=== PATIENT | male | born 1950 | race Caucasian/White ===

== ENCOUNTER 2017-03-15 15:43 | Inpatient (IN) | payer BC, MEDICARE ==
[2017-03-15] MEDS ORDERED: SODIUM CHLORIDE 0.9% 3,000 ML IV ONE (16:36)
[2017-03-15] MEDS ORDERED: SODIUM CHLORIDE 0.9% 1,000 ML IV STA (16:37)
[2017-03-15] MEDS ORDERED: CEFEPIME 2 GM in SODIUM CHLORIDE 0.9% 50 ML IVPB STA (16:38)
[2017-03-15] MEDS ORDERED: IV VANCOMYCIN PER PHARMACY 1 EACH MISC MISCELLANE PRN (16:39)
--- NOTE | 2017-03-15 16:47 | ED ---
General Adult HPI - General Chief complaint: Chest Pain Stated complaint: Right rib Pain Time Seen by Provider: 03/15/17 16:10 Source: patient Mode of arrival: wheelchair Limitations: no limitations - History of Present Illness Initial comments: The patient is a 66-year-old male who presents to the ED with a chief complaint of cough and shortness of breath. The patient states that the symptoms began 2 days ago. He states that they're associated sputum production and right-sided chest pain. The patient notes that he has also had a fever and chills. Patient states that this feels like the last time that he had an episode of pneumonia. This was back in mid December 2016. The patient denies any nausea or vomiting. He denies any abdominal pain. He states that he has had decreased urine output. The patient notes that he has a history of paroxysmal atrial fibrillation. He has cardiac risk factors of hypertension, hyperlipidemia, diabetes. Patient states that he has not used any medications while at home. Patient states that he had his flu shot this year but still got the flu earlier this year. His no history of PE or DVT. The patient was recently in [place] performing in [employer]. 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 - Related Data Home Medications Medication Instructions Recorded Confirmed Allopurinol [Zyloprim] 300 mg PO DAILY 03/15/17 03/15/17 Aspirin EC [Ecotrin Low Dose] 81 mg PO HS 03/15/17 03/15/17 Colesevelam [Welchol] 1,875 mg PO AC-BID 03/15/17 03/15/17 Esomeprazole Magnesium [NexIUM] 40 mg PO DAILY 03/15/17 03/15/17 Folplex 2.2mg 2.2 mg PO DAILY 03/15/17 03/15/17 Insulin Degludec [Tresiba 24 unit SQ HS 03/15/17 03/15/17 Flextouch U-200] Insulin Glulisine [Apidra Solostar] See Protocol SQ ACHS 03/15/17 03/15/17 Latanoprost [Xalatan 0.005%] 1 drop BOTH EYES TUTH@2100 03/15/17 03/15/17 Magnesium Gluconate [Magonate] 500 mg PO BID 03/15/17 03/15/17 Nateglinide [Starlix] 120 mg PO AC-TID 03/15/17 03/15/17 Pitavastatin Calcium [Livalo] 4 mg PO DAILY 03/15/17 03/15/17 Tamsulosin HCl [Flomax] 0.4 mg PO DAILY 03/15/17 03/15/17 Tolterodine Tartrate [Detrol LA] 4 mg PO DAILY 03/15/17 03/15/17 Torsemide [Demadex] 20 mg PO DAILY 03/15/17 03/15/17 sitaGLIPtin [Januvia] 100 mg PO DAILY 03/15/17 03/15/17 Allergies Allergy/AdvReac Type Severity Reaction Status Date / Time clopidogrel [From Plavix] Allergy Unknown Verified 03/15/17 17:37 niacin Allergy Hallucinati Verified 03/15/17 17:37 [From Niaspan ons Extended-Release] rivaroxaban [From Xarelto] Allergy Unknown Verified 03/15/17 17:37 Dayftxq-Fgo-Jru Reductase Allergy LEG CRAMPS Verified 03/15/17 17:37 Inhibitor Review of Systems ROS Statement: Those systems with pertinent positive or pertinent negative responses have been documented in the HPI. ROS Other: All systems not noted in ROS Statement are negative. Constitutional: Reports: fever, chills. Denies: weakness Respiratory: Denies: cough, dyspnea, wheezes, hemoptysis Cardiovascular: Reports: chest pain. Denies: as per HPI (right lower), dyspnea on exertion Endocrine: Reports: fatigue Gastrointestinal: Denies: abdominal pain, nausea, vomiting, diarrhea, constipation Genitourinary: Denies: urgency, dysuria, frequency, hematuria Musculoskeletal: Denies: back pain Neurological: Denies: headache, weakness, numbness Psychiatric: Denies: anxiety, depression Past Medical History Past Medical History: Atrial Fibrillation, Diabetes Mellitus History of Any Multi-Drug Resistant Organisms: None Reported Past Surgical History: Appendectomy, Orthopedic Surgery Additional Past Surgical History / Comment(s): eye surgery, heel spurs, Past Psychological History: No Psychological Hx Reported Smoking Status: Never smoker Past Alcohol Use History: Rare Past Drug Use History: None Reported General Exam Limitations: no limitations General appearance: alert, in no apparent distress Head exam: Present: atraumatic, normocephalic Eye exam: Present: normal appearance, PERRL. Absent: scleral icterus, conjunctival injection Pupils: Present: normal accommodation, other (wears glasses) ENT exam: Present: normal exam, mucous membranes dry Neck exam: Present: normal inspection, full ROM Respiratory exam: Present: other (crackles in the RLL) Cardiovascular Exam: Present: normal rhythm, tachycardia GI/Abdominal exam: Present: soft. Absent: distended, tenderness, guarding, rebound Extremities exam: Present: normal inspection, full ROM. Absent: tenderness Back exam: Present: normal inspection Neurological exam: Present: alert, oriented X3 Psychiatric exam: Present: normal affect, normal mood Skin exam: Present: warm, dry, intact Course Vital Signs 03/15/17 03/15/17 16:02 19:58 Temperature 101.7 F H 97.7 F Pulse Rate 98 82 Respiratory 18 18 Rate Blood Pressure 153/69 113/57 O2 Sat by Pulse 96 Oximetry EKG Findings - EKG Comments: EKG Findings:: EKG demonstrates sinus tachycardia. There is a right bundle branch block. His questionable T-wave inversion in Lead I and aVL. Medical Decision Making - Medical Decision Making Patient is a 66-year-old male who presents to the ED with a chief complaint of right lower chest wall pain. He states that it feels similar to when he had pneumonia in December. Patient notes fever. He notes that he has been more fatigued recently. Patient denies any nausea or vomiting. Patient is not tender on examination. Crackles appreciated at the right base. Concern for possible HCAP. Will cover patient with cefepime and vancomycin. Given that the patient has temp of 101.7 F as well as tachycardia, will bolus patient with 30 mL/kg IV fluids. Obtain lactic acid and blood cultures per sepsis protocol. Check chest x-ray. EKG. Keep patient on bus driver/monitor. Keep patient on continuous pulse ox monitoring. 6:55 PM Patient updated of overall findings. CXR demonstrates right-sided pleural effusion. Patient noted to have elevated LFTs. Lipase is normal. Concern for possible cholelithiasis with cholecystitis. Will obtain STAT Ultrasound Abdomen. 7:39 PM Patient updated of findings, including cholelithiasis with cholecystitis. D/C Vancomycin and provide patient with dose of Flagyl. Call placed to General Surgery seasonal driver. Patient's vital signs noted to be improved. HR is 87 with SpO2 of 97% on 2L NC. 7:[address] Connors, who states that she will likely take the patient to the OR in the morning. She recommends admitting the patient to Internal Medicine. Call placed to Internal Medicine Service. Spoke with Neal (covering for Dr. Maurice) who accepts admission of the patient. - Lab Data Result diagrams: 03/15/17 16:25 03/15/17 16:25 Lab Results 03/15/17 03/15/17 03/15/17 Range/Units 16:25 16:25 16:25 WBC (3.8-10.6) k/uL RBC (4.30-5.90) m/uL Hgb (13.0-17.5) gm/dL Hct (39.0-53.0) % MCV (80.0-100.0) fL MCH (25.0-35.0) pg MCHC (31.0-37.0) g/dL RDW (11.5-15.5) % Plt Count (150-450) k/uL Neutrophils % % Lymphocytes % % Monocytes % % Eosinophils % % Basophils % % Neutrophils # (1.3-7.7) k/uL Lymphocytes # (1.0-4.8) k/uL Monocytes # (0-1.0) k/uL Eosinophils # (0-0.7) k/uL Basophils # (0-0.2) k/uL Sodium 132 L (137-145) mmol/L Potassium 4.0 (3.5-5.1) mmol/L Chloride 98 (98-107) mmol/L Carbon Dioxide 26 (22-30) mmol/L Anion Gap 8 mmol/L BUN 14 (9-20) mg/dL Creatinine 0.99 (0.66-1.25) mg/dL Est GFR (MDRD) Af Amer >60 (>60 ml/min/1.73 sqM) Est GFR (MDRD) Non-Af >60 (>60 ml/min/1.73 sqM) Glucose 195 H (74-99) mg/dL Plasma Lactic Acid Abdiel (0.7-2.0) mmol/L Calcium 9.2 (8.4-10.2) mg/dL Magnesium 1.5 L (1.6-2.3) mg/dL Total Bilirubin 3.4 H (0.2-1.3) mg/dL AST 157 H (17-59) U/L ALT 262 H (21-72) U/L Alkaline Phosphatase 231 H (38-126) U/L Troponin I <0.012 (0.000-0.034) ng/mL Total Protein 6.7 (6.3-8.2) g/dL Albumin 3.6 (3.5-5.0) g/dL Lipase (23-300) U/L Urine Color Yellow Urine Appearance Clear (Clear) Urine pH 6.0 (5.0-8.0) Ur Specific [place] 1.009 (1.001-1.035) Urine Protein Negative (Negative) Urine Glucose (UA) Trace H (Negative) Urine Ketones Trace H (Negative) Urine Blood Negative (Negative) Urine Nitrite Negative (Negative) Urine Bilirubin Negative (Negative) Urine Urobilinogen <2.0 (<2.0) mg/dL Ur Leukocyte Esterase Negative (Negative) Influenza Type A RNA (Not Detectd) Influenza Type B (PCR) (Not Detectd) 03/15/17 03/15/17 03/15/17 Range/Units 16:25 16:25 17:00 WBC 9.7 (3.8-10.6) k/uL RBC 4.66 (4.30-5.90) m/uL Hgb 14.8 (13.0-17.5) gm/dL Hct 45.2 (39.0-53.0) % MCV 97.1 (80.0-100.0) fL MCH 31.8 (25.0-35.0) pg MCHC 32.8 (31.0-37.0) g/dL RDW 14.7 (11.5-15.5) % Plt Count 161 (150-450) k/uL Neutrophils % 88 % Lymphocytes % 6 % Monocytes % 4 % Eosinophils % 0 % Basophils % 0 % Neutrophils # 8.6 H (1.3-7.7) k/uL Lymphocytes # 0.6 L (1.0-4.8) k/uL Monocytes # 0.4 (0-1.0) k/uL Eosinophils # 0.0 (0-0.7) k/uL Basophils # 0.0 (0-0.2) k/uL Sodium (137-145) mmol/L Potassium (3.5-5.1) mmol/L Chloride (98-107) mmol/L Carbon Dioxide (22-30) mmol/L Anion Gap mmol/L BUN (9-20) mg/dL Creatinine (0.66-1.25) mg/dL Est GFR (MDRD) Af Amer (>60 ml/min/1.73 sqM) Est GFR (MDRD) Non-Af (>60 ml/min/1.73 sqM) Glucose (74-99) mg/dL Plasma Lactic Acid Abdiel 1.7 (0.7-2.0) mmol/L Calcium (8.4-10.2) mg/dL Magnesium (1.6-2.3) mg/dL Total Bilirubin (0.2-1.3) mg/dL AST (17-59) U/L ALT (21-72) U/L Alkaline Phosphatase (38-126) U/L Troponin I (0.000-0.034) ng/mL Total Protein (6.3-8.2) g/dL Albumin (3.5-5.0) g/dL Lipase 32 (23-300) U/L Urine Color Urine Appearance (Clear) Urine pH (5.0-8.0) Ur Specific [place] (1.001-1.035) Urine Protein (Negative) Urine Glucose (UA) (Negative) Urine Ketones (Negative) Urine Blood (Negative) Urine Nitrite (Negative) Urine Bilirubin (Negative) Urine Urobilinogen (<2.0) mg/dL Ur Leukocyte Esterase (Negative) Influenza Type A RNA (Not Detectd) Influenza Type B (PCR) (Not Detectd) 03/15/17 Range/Units 17:29 WBC (3.8-10.6) k/uL RBC (4.30-5.90) m/uL Hgb (13.0-17.5) gm/dL Hct (39.0-53.0) % MCV (80.0-100.0) fL MCH (25.0-35.0) pg MCHC (31.0-37.0) g/dL RDW (11.5-15.5) % Plt Count (150-450) k/uL Neutrophils % % Lymphocytes % % Monocytes % % Eosinophils % % Basophils % % Neutrophils # (1.3-7.7) k/uL Lymphocytes # (1.0-4.8) k/uL Monocytes # (0-1.0) k/uL Eosinophils # (0-0.7) k/uL Basophils # (0-0.2) k/uL Sodium (137-145) mmol/L Potassium (3.5-5.1) mmol/L Chloride (98-107) mmol/L Carbon Dioxide (22-30) mmol/L Anion Gap mmol/L BUN (9-20) mg/dL Creatinine (0.66-1.25) mg/dL Est GFR (MDRD) Af Amer (>60 ml/min/1.73 sqM) Est GFR (MDRD) Non-Af (>60 ml/min/1.73 sqM) Glucose (74-99) mg/dL Plasma Lactic Acid Abdiel (0.7-2.0) mmol/L Calcium (8.4-10.2) mg/dL Magnesium (1.6-2.3) mg/dL Total Bilirubin (0.2-1.3) mg/dL AST (17-59) U/L ALT (21-72) U/L Alkaline Phosphatase (38-126) U/L Troponin I (0.000-0.034) ng/mL Total Protein (6.3-8.2) g/dL Albumin (3.5-5.0) g/dL Lipase (23-300) U/L Urine Color Urine Appearance (Clear) Urine pH (5.0-8.0) Ur Specific [place] (1.001-1.035) Urine Protein (Negative) Urine Glucose (UA) (Negative) Urine Ketones (Negative) Urine Blood (Negative) Urine Nitrite (Negative) Urine Bilirubin (Negative) Urine Urobilinogen (<2.0) mg/dL Ur Leukocyte Esterase (Negative) Influenza Type A RNA Not Detected (Not Detectd) Influenza Type B (PCR) Not Detected (Not Detectd) Disposition Clinical Impression: Cholelithiasis and acute cholecystitis with obstruction, Sepsis Disposition: ADMITTED IP TO THIS HOSP Referrals: Gregorio Cheng MD [Primary Care Provider] - 1-2 days Decision to Admit Reason: Admit from EC Decision Date: 03/15/17 Decision Time: 19:55
[2017-03-15] MEDS ORDERED: ACETAMINOPHEN TAB 325 MG TAB PO STA (16:48)
[2017-03-15] MEDS ORDERED: VANCOMYCIN 1,750 MG in SODIUM CHLORIDE 0.9% 250 ML IVPB ONE (17:00)
[2017-03-15 17:11] LABS: Basophils % (A) 0 %; CH 32.5; CHCM 33.6; Eosinophils % (A) 0 %; HCT 45.2 % (39.0-53.0); HDW 2.64; HGB 14.8 gm/dL (13.0-17.5); Luc # (Auto) 0.08; Luc % (Auto) 1; Lymphocytes # (A) 0.6 k/uL (1.0-4.8); Lymphocytes % (A) 6 %; MCH 31.8 pg (25.0-35.0); MCHC 32.8 g/dL (31.0-37.0); MCV 97.1 fL (80.0-100.0); Monocytes # (A) 0.4 k/uL (0-1.0); Monocytes % (A) 4 %; Neutrophils # (A) 8.6 k/uL (1.3-7.7); Neutrophils % (A) 88 %; RBC 4.66 m/uL (4.30-5.90); RDW 14.7 % (11.5-15.5); WBC 9.7 k/uL (3.8-10.6); WBC (Perox) 9.65
[2017-03-15 17:15] LABS: Appearance,Urine Clear (Clear); Bilirubin,Urine Negative (Negative); Glucose,Urine (UA) Trace (Negative); Ketones,Urine Trace (Negative); Leukocyte Esterase,Urine Negative (Negative); Nitrite,Urine Negative (Negative); Protein,Urine Negative (Negative); Specific Gravity,Urine 1.009 (1.001-1.035); UA Billing (MACRO vs. MICRO) CHEM; Urobilinogen,Urine <2.0 mg/dL (<2.0)
[2017-03-15 17:22] LABS: ALT 262 U/L (21-72); AST 157 U/L (17-59); Alkaline Phosphatase 231 U/L (38-126); Anion Gap 8 mmol/L; Blood Urea Nitrogen 14 mg/dL (9-20); Calcium 9.2 mg/dL (8.4-10.2); Carbon Dioxide 26 mmol/L (22-30); Chloride 98 mmol/L (98-107); Glucose 195 mg/dL (74-99); Magnesium 1.5 mg/dL (1.6-2.3); Non-African American GFR(MDRD) >60 (>60 ml/min/1.73 sqM); Sodium 132 mmol/L (137-145); Total Bilirubin 3.4 mg/dL (0.2-1.3); Total Protein 6.7 g/dL (6.3-8.2)
--- NOTE | 2017-03-15 18:19 | XR ---
EXAMINATION TYPE: XR chest 2V DATE OF EXAM: 03/15/2017 6:10 PM COMPARISON: NONE HISTORY: Cough TECHNIQUE: Frontal and lateral views of the chest are obtained. FINDINGS: Heart and mediastinum are normal. There is blunting of right costophrenic angle. There is slight elevated right diaphragm. Left lung is clear. There is no heart failure. There are chest leads . IMPRESSION: Findings are consistent with right basilar atelectasis and pleural effusion. No heart fa ilure. Normal heart.
--- NOTE | 2017-03-15 19:08 | US ---
EXAMINATION TYPE: US abdomen limited DATE OF EXAM: 03/15/2017 6:56 PM COMPARISON: NONE CLINICAL HISTORY: RUQ Pain. EXAM MEASUREMENTS: Liver Length: 20.2 cm Gallbladder Wall: 0.5 cm CBD: 1.0 cm Right Kidney: 12.4 x 6.2 x 5.8 cm Pancreas: Obscured by bowel gas Liver: Enlarged, heterogeneous echotexture Gallbladder: Gallbladder wall is thickened. There is an echogenic foci visualized within the neck of the gallbladder measuring 0.9 cm Evidence for sonographic Hinson's sign: No CBD: Dilated, distal portion is obscured by bowel gas and could not be evaluated for possible stone Right Kidney: No hydronephrosis or masses seen IMPRESSION: There is a 10 mm stone impacted in the gallbladder neck. There is gallbladder wall thicke charisma consistent with cholecystitis. No focal liver defect. The common bile duct is mildly dilated but no dilation seen of the intrahepatic bile ducts.
[2017-03-15] MEDS ORDERED: metroNIDAZOLE-NS PMX 500 MG in SALINE 1 100ML.BAG IVPB STA (19:09)
[2017-03-15] MEDS: MAGNESIUM SULFATE-D5W PMX 1 GM in DEXTROSE/WATER 1 100ML.BAG IVPB SCH ×2 (19:16→20:22)
[2017-03-15] MEDS ORDERED: ACETAMINOPHEN TAB 325 MG TAB PO PRN (19:55)
[2017-03-15] MEDS ORDERED: NALOXONE 0.4 MG/ML 1 ML VIAL IV PRN (19:55)
[2017-03-15] MEDS ORDERED: HYDROcodone/APAP 5-325MG 1 EACH TAB PO PRN (20:19)
[2017-03-15] MEDS ORDERED: MAGNESIUM SULFATE-D5W PMX 1 GM in DEXTROSE/WATER 1 100ML.BAG IVPB SCH (20:45)
[2017-03-15 21:28] LABS: Glucose,Whole Blood 197 mg/dL (75-99)
[2017-03-15] MEDS ORDERED: INSULIN GLARGINE 100 UNIT/ML 10 ML VIAL SQ ONE (22:00)
[2017-03-15] MEDS: metroNIDAZOLE-NS PMX 500 MG in SALINE 1 100ML.BAG IVPB SCH (23:13)
[2017-03-16] MEDS: HEPARIN SODIUM,PORCINE 5,000 UNIT/ML 1 ML VIAL SQ SCH ×3 (02:42→15:18)
[2017-03-16] MEDS: HYDROmorphone 1 MG/ML 1 ML SYRINGE IVP PRN ×4 (02:53→18:08)
[2017-03-16] MEDS: metroNIDAZOLE-NS PMX 500 MG in SALINE 1 100ML.BAG IVPB SCH ×2 (04:58→13:51)
[2017-03-16] MEDS ORDERED: VANCOMYCIN 1,750 MG in SODIUM CHLORIDE 0.9% 250 ML IVPB SCH (06:00)
[2017-03-16 07:19] LABS: Glucose,Whole Blood 119 mg/dL (75-99)
[2017-03-16 07:35] LABS: INR 1.1 (<1.1); Partial Thromboplastin Time 23.8 sec (22.0-30.0); Prothrombin Time 10.9 sec (9.0-12.0)
[2017-03-16 07:37] LABS: ALT 155 U/L (21-72); AST 57 U/L (17-59); Alkaline Phosphatase 160 U/L (38-126); Anion Gap 5 mmol/L; Blood Urea Nitrogen 10 mg/dL (9-20); Calcium 8.1 mg/dL (8.4-10.2); Carbon Dioxide 23 mmol/L (22-30); Chloride 111 mmol/L (98-107); Glucose 116 mg/dL (74-99); Non-African American GFR(MDRD) >60 (>60 ml/min/1.73 sqM); Phosphorous 1.7 mg/dL (2.5-4.5); Potassium 3.5 mmol/L (3.5-5.1); Sodium 139 mmol/L (137-145); Total Protein 5.1 g/dL (6.3-8.2)
[2017-03-16 07:44] LABS: Basophils % (A) 0 %; CH 32.3; CHCM 34.5; Eosinophils # (A) 0.1 k/uL (0-0.7); Eosinophils % (A) 1 %; HCT 36.3 % (39.0-53.0); HDW 2.87; HGB 12.5 gm/dL (13.0-17.5); Luc # (Auto) 0.14; Luc % (Auto) 2; Lymphocytes # (A) 0.9 k/uL (1.0-4.8); Lymphocytes % (A) 11 %; MCH 32.3 pg (25.0-35.0); MCHC 34.4 g/dL (31.0-37.0); MCV 93.8 fL (80.0-100.0); Monocytes # (A) 0.6 k/uL (0-1.0); Monocytes % (A) 7 %; Neutrophils # (A) 5.9 k/uL (1.3-7.7); Neutrophils % (A) 79 %; RBC 3.87 m/uL (4.30-5.90); RDW 14.2 % (11.5-15.5); WBC 7.5 k/uL (3.8-10.6); WBC (Perox) 8.13
[2017-03-16] MEDS: INSULIN LISPRO (humaLOG) 300 UNIT/3 ML VIAL SQ SCH ×4 (08:23→21:43)
--- NOTE | 2017-03-16 11:34 | P.GSCN ---
History of Present Illness Consult date: 03/16/17 Past Medical History Past Medical History: Atrial Fibrillation, Diabetes Mellitus History of Any Multi-Drug Resistant Organisms: None Reported Past Surgical History: Appendectomy, Orthopedic Surgery Additional Past Surgical History / Comment(s): 7 eye surgeries, heel spurs, Past Anesthesia/Blood Transfusion Reactions: Previous Problems w/ Anesthesia Additional Past Anesthesia/Blood Transfusion Reaction / Comm: pt states he has woken up during past surgeries Past Psychological History: No Psychological Hx Reported Smoking Status: Former smoker Past Alcohol Use History: Rare Past Drug Use History: None Reported Medications and Allergies Home Medications Medication Instructions Recorded Confirmed Type Allopurinol [Zyloprim] 300 mg PO DAILY 03/15/17 03/15/17 History Aspirin EC [Ecotrin Low Dose] 81 mg PO HS 03/15/17 03/15/17 History Colesevelam [Welchol] 1,875 mg PO AC-BID 03/15/17 03/15/17 History Esomeprazole Magnesium [NexIUM] 40 mg PO DAILY 03/15/17 03/15/17 History Folplex 2.2mg 2.2 mg PO DAILY 03/15/17 03/15/17 History Insulin Degludec [Tresiba 24 unit SQ HS 03/15/17 03/15/17 History Flextouch U-200] Insulin Glulisine [Apidra Solostar] See Protocol SQ ACHS 03/15/17 03/15/17 History Latanoprost [Xalatan 0.005%] 1 drop BOTH EYES TUTH@2100 03/15/17 03/15/17 History Magnesium Gluconate [Magonate] 500 mg PO BID 03/15/17 03/15/17 History Pitavastatin Calcium [Livalo] 4 mg PO DAILY 03/15/17 03/15/17 History Tamsulosin HCl [Flomax] 0.4 mg PO DAILY 03/15/17 03/15/17 History Tolterodine Tartrate [Detrol LA] 4 mg PO DAILY 03/15/17 03/15/17 History Torsemide [Demadex] 20 mg PO DAILY 03/15/17 03/15/17 History sitaGLIPtin [Januvia] 100 mg PO DAILY 03/15/17 03/15/17 History Allergies Allergy/AdvReac Type Severity Reaction Status Date / Time clopidogrel [From Plavix] Allergy Unknown Verified 03/15/17 17:37 niacin Allergy Hallucinati Verified 03/15/17 17:37 [From Niaspan ons Extended-Release] rivaroxaban [From Xarelto] Allergy Unknown Verified 03/15/17 17:37 Sivsyin-Rjn-Pgp Reductase Allergy LEG CRAMPS Verified 03/15/17 17:37 Inhibitor Surgical - Exam Vital Signs Temp Pulse Resp BP 101.7 F H 98 18 153/69 03/15/17 16:02 03/15/17 16:02 03/15/17 16:02 03/15/17 16:02 Results - Labs 03/16/17 06:58 03/16/17 06:58 Abnormal Lab Results - Last 24 Hours (Table) 03/15/17 03/16/17 03/16/17 Range/Units 21: 06:58 06:58 RBC 3.87 L (4.30-5.90) m/uL Hgb 12.5 L (13.0-17.5) gm/dL Hct 36.3 L (39.0-53.0) % Plt Count 137 L (150-450) k/uL Lymphocytes # 0.9 L (1.0-4.8) k/uL Chloride 111 H (98-107) mmol/L Glucose 116 H (74-99) mg/dL POC Glucose (mg/dL) 197 H (75-99) mg/dL Calcium 8.1 L (8.4-10.2) mg/dL Phosphorus 1.7 L (2.5-4.5) mg/dL Total Bilirubin 2.0 H (0.2-1.3) mg/dL Delta Bilirubin 1.0 H (0.0-0.2) mg/dL ALT 155 H (21-72) U/L Alkaline Phosphatase 160 H (38-126) U/L Total Protein 5.1 L (6.3-8.2) g/dL Albumin 2.6 L (3.5-5.0) g/dL 03/16/17 Range/Units 07:05 RBC (4.30-5.90) m/uL Hgb (13.0-17.5) gm/dL Hct (39.0-53.0) % Plt Count (150-450) k/uL Lymphocytes # (1.0-4.8) k/uL Chloride (98-107) mmol/L Glucose (74-99) mg/dL POC Glucose (mg/dL) 119 H (75-99) mg/dL Calcium (8.4-10.2) mg/dL Phosphorus (2.5-4.5) mg/dL Total Bilirubin (0.2-1.3) mg/dL Delta Bilirubin (0.0-0.2) mg/dL ALT (21-72) U/L Alkaline Phosphatase (38-126) U/L Total Protein (6.3-8.2) g/dL Albumin (3.5-5.0) g/dL Diabetes panel 03/16/17 Range/Units 06:58 Sodium 139 (137-145) mmol/L Potassium 3.5 (3.5-5.1) mmol/L Chloride 111 H (98-107) mmol/L Carbon Dioxide 23 (22-30) mmol/L BUN 10 (9-20) mg/dL Creatinine 0.70 (0.66-1.25) mg/dL Glucose 116 H (74-99) mg/dL Calcium 8.1 L (8.4-10.2) mg/dL AST 57 (17-59) U/L ALT 155 H (21-72) U/L Alkaline Phosphatase 160 H (38-126) U/L Total Protein 5.1 L (6.3-8.2) g/dL Albumin 2.6 L (3.5-5.0) g/dL Calcium panel 03/16/17 Range/Units 06:58 Calcium 8.1 L (8.4-10.2) mg/dL Phosphorus 1.7 L (2.5-4.5) mg/dL Albumin 2.6 L (3.5-5.0) g/dL Pituitary panel 03/16/17 Range/Units 06:58 Sodium 139 (137-145) mmol/L Potassium 3.5 (3.5-5.1) mmol/L Chloride 111 H (98-107) mmol/L Carbon Dioxide 23 (22-30) mmol/L BUN 10 (9-20) mg/dL Creatinine 0.70 (0.66-1.25) mg/dL Glucose 116 H (74-99) mg/dL Calcium 8.1 L (8.4-10.2) mg/dL Adrenal panel 03/16/17 Range/Units 06:58 Sodium 139 (137-145) mmol/L Potassium 3.5 (3.5-5.1) mmol/L Chloride 111 H (98-107) mmol/L Carbon Dioxide 23 (22-30) mmol/L BUN 10 (9-20) mg/dL Creatinine 0.70 (0.66-1.25) mg/dL Glucose 116 H (74-99) mg/dL Calcium 8.1 L (8.4-10.2) mg/dL Total Bilirubin 2.0 H (0.2-1.3) mg/dL AST 57 (17-59) U/L ALT 155 H (21-72) U/L Alkaline Phosphatase 160 H (38-126) U/L Total Protein 5.1 L (6.3-8.2) g/dL Albumin 2.6 L (3.5-5.0) g/dL
--- NOTE | 2017-03-16 11:44 | P.GSCN ---
<Millie Landry - Last Filed: 03/16/17 11:36> History of Present Illness Consult date: 03/16/17 History of present illness: 66-year-old male presented on the day of admission to the emergency room with a chief complaint of developing a sudden onset of right-sided chest pain with a sensation of nausea fever chills. Patient stated he was up visiting his girlfriend he lives in [place] when the incident occurred. Patient stated the pain was symptomatic came into the emergency room to be evaluated. Patient does state that 2 days prior he had an episode where he felt like he was "getting pneumonia he had right side chest pain with shortness of breath. Patient stated he felt like he had a fever he did not take his temperature. Additionally patient stated that he felt similar sensation with right side chest pain with fevers when he had pneumonia this was in December 2016. Patient denied any nausea vomiting. Denied any abdominal pain. Patient states that he has been relatively healthy individual. Patient states that with activity has not developed any chest pain. 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 Subsequent the patient did present to the emergency room to be evaluated for the above-mentioned symptoms in the emergency room patient was febrile with mild leukocytosis the tip in the emergency room was 11.7 heart rate in the 90s the white count 9.7. Mild elevated liver enzymes AST 155 ALT 160 total bilirubin 1 influenza AMB nondetected chest x-ray showed no acute process. Ultrasound of the abdomen in the emergency room showed a 10 mm stone impacted in the gallbladder neck there was gallbladder wall thickening consistent with cholecystitis. Given the above clinical presentation the patient was admitted to the services of the attending with a surgical consultation requested. Patients being seen for the above-mentioned symptoms Past surgical history patient stated that he had an appendectomy and he was 11 otherwise unremarkable. Past medical history patient states he has a history of paroxysmal atrial fibrillation sees a director of surgery in [place] dr yates last seen within the last several months. Patient denies ever having a heart attack. Is on no blood thinners except aspirin. Patient states with activity has not been short of breath or experiencing any chest pain Review of Systems unremarkable except as mentioned in the present illness Past Medical History Past Medical History: Atrial Fibrillation, Diabetes Mellitus History of Any Multi-Drug Resistant Organisms: None Reported Past Surgical History: Appendectomy, Orthopedic Surgery Additional Past Surgical History / Comment(s): 7 eye surgeries, heel spurs, Past Anesthesia/Blood Transfusion Reactions: Previous Problems w/ Anesthesia Additional Past Anesthesia/Blood Transfusion Reaction / Comm: pt states he has woken up during past surgeries Past Psychological History: No Psychological Hx Reported Smoking Status: Former smoker Past Alcohol Use History: Rare Past Drug Use History: None Reported Medications and Allergies Home Medications Medication Instructions Recorded Confirmed Type Allopurinol [Zyloprim] 300 mg PO DAILY 03/15/17 03/15/17 History Aspirin EC [Ecotrin Low Dose] 81 mg PO HS 03/15/17 03/15/17 History Colesevelam [Welchol] 1,875 mg PO AC-BID 03/15/17 03/15/17 History Esomeprazole Magnesium [NexIUM] 40 mg PO DAILY 03/15/17 03/15/17 History Folplex 2.2mg 2.2 mg PO DAILY 03/15/17 03/15/17 History Insulin Degludec [Tresiba 24 unit SQ HS 03/15/17 03/15/17 History Flextouch U-200] Insulin Glulisine [Apidra Solostar] See Protocol SQ ACHS 03/15/17 03/15/17 History Latanoprost [Xalatan 0.005%] 1 drop BOTH EYES TUTH@2100 03/15/17 03/15/17 History Magnesium Gluconate [Magonate] 500 mg PO BID 03/15/17 03/15/17 History Pitavastatin Calcium [Livalo] 4 mg PO DAILY 03/15/17 03/15/17 History Tamsulosin HCl [Flomax] 0.4 mg PO DAILY 03/15/17 03/15/17 History Tolterodine Tartrate [Detrol LA] 4 mg PO DAILY 03/15/17 03/15/17 History Torsemide [Demadex] 20 mg PO DAILY 03/15/17 03/15/17 History sitaGLIPtin [Januvia] 100 mg PO DAILY 03/15/17 03/15/17 History Allergies Allergy/AdvReac Type Severity Reaction Status Date / Time clopidogrel [From Plavix] Allergy Unknown Verified 03/15/17 17:37 niacin Allergy Hallucinati Verified 03/15/17 17:37 [From Niaspan ons Extended-Release] rivaroxaban [From Xarelto] Allergy Unknown Verified 03/15/17 17:37 Vhwlgza-Krl-Dju Reductase Allergy LEG CRAMPS Verified 03/15/17 17:37 Inhibitor Surgical - Exam Vital Signs Temp Pulse Resp BP 101.7 F H 98 18 153/69 03/15/17 16:02 03/15/17 16:02 03/15/17 16:02 03/15/17 16:02 Physical exam 66-year-old male resting comfortably in bed does not appear in any acute distress. Patient states he just received medication for pain control continues to have been episodes of right-sided chest pain Lungs right lower lobe dry crackles noted otherwise clearr on room airno cough noted no shortness of breath heart S1-S2 audible and regular monitor sinus denying chest pain no murmur Abdomen slight tenderness to the right upper quadrant bowel tones present not distended no nausea vomiting Extremities no edema to the upper or lower extremities Results - Labs 03/16/17 06:58 03/16/17 06:58 Abnormal Lab Results - Last 24 Hours (Table) 03/15/17 03/16/17 03/16/17 Range/Units 21:17 06:58 06:58 RBC 3.87 L (4.30-5.90) m/uL Hgb 12.5 L (13.0-17.5) gm/dL Hct 36.3 L (39.0-53.0) % Plt Count 137 L (150-450) k/uL Lymphocytes # 0.9 L (1.0-4.8) k/uL Chloride 111 H (98-107) mmol/L Glucose 116 H (74-99) mg/dL POC Glucose (mg/dL) 197 H (75-99) mg/dL Calcium 8.1 L (8.4-10.2) mg/dL Phosphorus 1.7 L (2.5-4.5) mg/dL Total Bilirubin 2.0 H (0.2-1.3) mg/dL Delta Bilirubin 1.0 H (0.0-0.2) mg/dL ALT 155 H (21-72) U/L Alkaline Phosphatase 160 H (38-126) U/L Total Protein 5.1 L (6.3-8.2) g/dL Albumin 2.6 L (3.5-5.0) g/dL 03/16/17 Range/Units 07:05 RBC (4.30-5.90) m/uL Hgb (13.0-17.5) gm/dL Hct (39.0-53.0) % Plt Count (150-450) k/uL Lymphocytes # (1.0-4.8) k/uL Chloride (98-107) mmol/L Glucose (74-99) mg/dL POC Glucose (mg/dL) 119 H (75-99) mg/dL Calcium (8.4-10.2) mg/dL Phosphorus (2.5-4.5) mg/dL Total Bilirubin (0.2-1.3) mg/dL Delta Bilirubin (0.0-0.2) mg/dL ALT (21-72) U/L Alkaline Phosphatase (38-126) U/L Total Protein (6.3-8.2) g/dL Albumin (3.5-5.0) g/dL Diabetes panel 03/16/17 Range/Units 06:58 Sodium 139 (137-145) mmol/L Potassium 3.5 (3.5-5.1) mmol/L Chloride 111 H (98-107) mmol/L Carbon Dioxide 23 (22-30) mmol/L BUN 10 (9-20) mg/dL Creatinine 0.70 (0.66-1.25) mg/dL Glucose 116 H (74-99) mg/dL Calcium 8.1 L (8.4-10.2) mg/dL AST 57 (17-59) U/L ALT 155 H (21-72) U/L Alkaline Phosphatase 160 H (38-126) U/L Total Protein 5.1 L (6.3-8.2) g/dL Albumin 2.6 L (3.5-5.0) g/dL Calcium panel 03/16/17 Range/Units 06:58 Calcium 8.1 L (8.4-10.2) mg/dL Phosphorus 1.7 L (2.5-4.5) mg/dL Albumin 2.6 L (3.5-5.0) g/dL Pituitary panel 03/16/17 Range/Units 06:58 Sodium 139 (137-145) mmol/L Potassium 3.5 (3.5-5.1) mmol/L Chloride 111 H (98-107) mmol/L Carbon Dioxide 23 (22-30) mmol/L BUN 10 (9-20) mg/dL Creatinine 0.70 (0.66-1.25) mg/dL Glucose 116 H (74-99) mg/dL Calcium 8.1 L (8.4-10.2) mg/dL Adrenal panel 03/16/17 Range/Units 06:58 Sodium 139 (137-145) mmol/L Potassium 3.5 (3.5-5.1) mmol/L Chloride 111 H (98-107) mmol/L Carbon Dioxide 23 (22-30) mmol/L BUN 10 (9-20) mg/dL Creatinine 0.70 (0.66-1.25) mg/dL Glucose 116 H (74-99) mg/dL Calcium 8.1 L (8.4-10.2) mg/dL Total Bilirubin 2.0 H (0.2-1.3) mg/dL AST 57 (17-59) U/L ALT 155 H (21-72) U/L Alkaline Phosphatase 160 H (38-126) U/L Total Protein 5.1 L (6.3-8.2) g/dL Albumin 2.6 L (3.5-5.0) g/dL Assessment and Plan Plan: Impression Present on admission right upper quadrant pain fever chills suspect due to acute cholecystitis Present on admission febrile leukocytosis suspect due to acute cholecystitis History of a recent admission for pneumonia December 2016 Paroxysmal atrial fibrillation 12-lead EKG shows sinus Present on admission elevated liver enzymes suspect due to acute cholecystitis Present on admission positive blood culture gram-negative bacilli Plan Continue the IV antibiotics Rocephin and Flagyl Infectious disease consultation Keep nothing by mouth plan surgery today for a cholecystectomy possible open versus laparoscopic IV fluid for hydration DVT and GI prophylaxis Further recommendations pending Thank you for allowing us to participate in the surgical management of your patient will follow the clinical course closely addressing surgical issues as they arise The above dictated assessment and findings were discussed with dr deon Bello and the plan of care have been dictated as directed. Millie Landry nurse practitioner acting as a scribe for dr rose <Darlene Connors - Last Filed: 03/16/17 14:26> Surgical - Exam Vital Signs Temp Pulse Resp BP 101.7 F H 98 18 153/69 03/15/17 16:02 03/15/17 16:02 03/15/17 16:02 03/15/17 16:02 Results - Labs 03/16/17 06:58 03/16/17 06:58 Abnormal Lab Results - Last 24 Hours (Table) 03/15/17 03/16/17 03/16/17 Range/Units 21:17 06:58 06:58 RBC 3.87 L (4.30-5.90) m/uL Hgb 12.5 L (13.0-17.5) gm/dL Hct 36.3 L (39.0-53.0) % Plt Count 137 L (150-450) k/uL Lymphocytes # 0.9 L (1.0-4.8) k/uL Chloride 111 H (98-107) mmol/L Glucose 116 H (74-99) mg/dL POC Glucose (mg/dL) 197 H (75-99) mg/dL Hemoglobin A1c (4.2-6.1) % Calcium 8.1 L (8.4-10.2) mg/dL Phosphorus 1.7 L (2.5-4.5) mg/dL Total Bilirubin 2.0 H (0.2-1.3) mg/dL Delta Bilirubin 1.0 H (0.0-0.2) mg/dL ALT 155 H (21-72) U/L Alkaline Phosphatase 160 H (38-126) U/L Total Protein 5.1 L (6.3-8.2) g/dL Albumin 2.6 L (3.5-5.0) g/dL 03/16/17 03/16/17 Range/Units 06:58 07:05 RBC (4.30-5.90) m/uL Hgb (13.0-17.5) gm/dL Hct (39.0-53.0) % Plt Count (150-450) k/uL Lymphocytes # (1.0-4.8) k/uL Chloride (98-107) mmol/L Glucose (74-99) mg/dL POC Glucose (mg/dL) 119 H (75-99) mg/dL Hemoglobin A1c 7.0 H (4.2-6.1) % Calcium (8.4-10.2) mg/dL Phosphorus (2.5-4.5) mg/dL Total Bilirubin (0.2-1.3) mg/dL Delta Bilirubin (0.0-0.2) mg/dL ALT (21-72) U/L Alkaline Phosphatase (38-126) U/L Total Protein (6.3-8.2) g/dL Albumin (3.5-5.0) g/dL Diabetes panel 03/16/17 03/16/17 Range/Units 06:58 06:58 Sodium 139 (137-145) mmol/L Potassium 3.5 (3.5-5.1) mmol/L Chloride 111 H (98-107) mmol/L Carbon Dioxide 23 (22-30) mmol/L BUN 10 (9-20) mg/dL Creatinine 0.70 (0.66-1.25) mg/dL Glucose 116 H (74-99) mg/dL Hemoglobin A1c 7.0 H (4.2-6.1) % Calcium 8.1 L (8.4-10.2) mg/dL AST 57 (17-59) U/L ALT 155 H (21-72) U/L Alkaline Phosphatase 160 H (38-126) U/L Total Protein 5.1 L (6.3-8.2) g/dL Albumin 2.6 L (3.5-5.0) g/dL Calcium panel 03/16/17 Range/Units 06:58 Calcium 8.1 L (8.4-10.2) mg/dL Phosphorus 1.7 L (2.5-4.5) mg/dL Albumin 2.6 L (3.5-5.0) g/dL Pituitary panel 03/16/17 Range/Units 06:58 Sodium 139 (137-145) mmol/L Potassium 3.5 (3.5-5.1) mmol/L Chloride 111 H (98-107) mmol/L Carbon Dioxide 23 (22-30) mmol/L BUN 10 (9-20) mg/dL Creatinine 0.70 (0.66-1.25) mg/dL Glucose 116 H (74-99) mg/dL Calcium 8.1 L (8.4-10.2) mg/dL Adrenal panel 03/16/17 Range/Units 06:58 Sodium 139 (137-145) mmol/L Potassium 3.5 (3.5-5.1) mmol/L Chloride 111 H (98-107) mmol/L Carbon Dioxide 23 (22-30) mmol/L BUN 10 (9-20) mg/dL Creatinine 0.70 (0.66-1.25) mg/dL Glucose 116 H (74-99) mg/dL Calcium 8.1 L (8.4-10.2) mg/dL Total Bilirubin 2.0 H (0.2-1.3) mg/dL AST 57 (17-59) U/L ALT 155 H (21-72) U/L Alkaline Phosphatase 160 H (38-126) U/L Total Protein 5.1 L (6.3-8.2) g/dL Albumin 2.6 L (3.5-5.0) g/dL Assessment and Plan Plan: Patient examined. Plan discussed. Laparoscopic cholecystectomy possible open. The risks, benefits and potential complications explained including bleeding, infection, bile leak and inadvertent bile duct injury. Blood cultures positive noted for gram negative. Infectious disease consulted and continue with IV zosyn till final cultures are available.
--- NOTE | 2017-03-16 11:49 | P.CONS ---
History of Present Illness - Reason for Consult Consult date: 03/16/17 possible CBD stone Requesting physician: Darlene Connors - History of Present Illness 66-year-old gentleman patient of Dr. Cheng seen around 8:30 this morning with a past medical history of atrial fibrillation and diabetes mellitus. Patient presents with acute right upper quadrant abdominal pain that started yesterday at 2 PM while he was resting. No history of this type of pain. T- max 101.7. Blood cultures pending. Denies changes in the color of his urine or stool. No history of hepatitis intravenous drug abuse or alcohol consumption. Consultation requested for possible CBD stone. Abdominal ultrasound showed an enlarged heterogeneous echotexture liver. Go bladder wall was thickened 0.5 cm. Echogenic foci within the neck of the gallbladder measuring 0.9 cm. Dilated CBD distal portion was obscured by bowel gas. Possible stone. No evidence of intrahepatic biliary dilatation. White count 7.5. Hemoglobin 12.5. Platelet 137. INR 1.1. Total bilirubin 2.0. Conjugated 0. Unconjugated 1.0. Delta 1.0. AST 57. ALT 155. Alkaline phosphatase 160. Lipase 46. Influenza not detected. Review of Systems Constitutional: Denies fever, chills, sweats, weight gain, or loss. HEENT: Negative for migraines, blurred vision or loss, earaches, drainage, tinnitus, oral mucosal lesions, dysphagia, or odynophagia. Cardiac: Atrial fibrillation. Negative for chest pain, arrhythmias, or palpitation. Respiratory: Negative for shortness of breath, hemoptysis, cough, or sputum production. Gastrointestinal: See HPI for pertinent findings. Genitourinary: Negative for hematuria, urgency, frequency, polyuria, dysuria, or penile discharge. Musculoskeletal: Negative for muscle aches, swelling, arthritis, and arthralgias. Neurologic: Negative for stroke or TIA. Endocrine: Diabetes mellitus. Negative for thyroid problems. Skin: Negative for rash or itching. Psychiatric: Negative history for depression and anxiety All systems: negative (See HPI) Past Medical History Past Medical History: Atrial Fibrillation, Diabetes Mellitus History of Any Multi-Drug Resistant Organisms: None Reported Past Surgical History: Appendectomy, Orthopedic Surgery Additional Past Surgical History / Comment(s): 7 eye surgeries, heel spurs, Past Anesthesia/Blood Transfusion Reactions: Previous Problems w/ Anesthesia Additional Past Anesthesia/Blood Transfusion Reaction / Comm: pt states he has woken up during past surgeries Past Psychological History: No Psychological Hx Reported Smoking Status: Former smoker Past Alcohol Use History: Rare Past Drug Use History: None Reported Medications and Allergies Home Medications Medication Instructions Recorded Confirmed Type Allopurinol [Zyloprim] 300 mg PO DAILY 03/15/17 03/15/17 History Aspirin EC [Ecotrin Low Dose] 81 mg PO HS 03/15/17 03/15/17 History Colesevelam [Welchol] 1,875 mg PO AC-BID 03/15/17 03/15/17 History Esomeprazole Magnesium [NexIUM] 40 mg PO DAILY 03/15/17 03/15/17 History Folplex 2.2mg 2.2 mg PO DAILY 03/15/17 03/15/17 History Insulin Degludec [Tresiba 24 unit SQ HS 03/15/17 03/15/17 History Flextouch U-200] Insulin Glulisine [Apidra Solostar] See Protocol SQ ACHS 03/15/17 03/15/17 History Latanoprost [Xalatan 0.005%] 1 drop BOTH EYES TUTH@2100 03/15/17 03/15/17 History Magnesium Gluconate [Magonate] 500 mg PO BID 03/15/17 03/15/17 History Pitavastatin Calcium [Livalo] 4 mg PO DAILY 03/15/17 03/15/17 History Tamsulosin HCl [Flomax] 0.4 mg PO DAILY 03/15/17 03/15/17 History Tolterodine Tartrate [Detrol LA] 4 mg PO DAILY 03/15/17 03/15/17 History Torsemide [Demadex] 20 mg PO DAILY 03/15/17 03/15/17 History sitaGLIPtin [Januvia] 100 mg PO DAILY 03/15/17 03/15/17 History Allergies Allergy/AdvReac Type Severity Reaction Status Date / Time clopidogrel [From Plavix] Allergy Unknown Verified 03/15/17 17:37 niacin Allergy Hallucinati Verified 03/15/17 17:37 [From Niaspan ons Extended-Release] rivaroxaban [From Xarelto] Allergy Unknown Verified 03/15/17 17:37 Fcdinuc-Qvp-Mqb Reductase Allergy LEG CRAMPS Verified 03/15/17 17:37 Inhibitor Physical Exam Vitals: Vital Signs Temp Pulse Pulse Resp BP Pulse Ox 03/16/17 07:00 98.6 F 66 16 116/58 96 03/16/17 02:59 97.7 F 80 16 159/72 97 03/15/17 21:00 97.5 F L 70 18 116/56 Intake and Output 03/15/17 03/16/17 03/16/17 22:59 06:59 14:59 Intake Total 590 1100 Balance 590 1100 Intake: Intake, IV Titration 1100 Amount Sodium Chloride 0.9% 1, 1000 000 ml @ 125 mls/hr IV . Q8H STA Rx#:[id number] metroNIDAZOLE-NS PMX 500 100 mg In Saline 1 100ml.bag @ 100 mls/hr IVPB Q6HR BLAYNE Rx#:[id number] Oral 590 Other: Voiding Method Toilet Urinal # Voids 2 2 General appearance: The patient is alert, oriented, in no acute distress. HET: Head is normocephalic and atraumatic. Pupils are equal and reactive. Oropharynx is clear without lesions. Neck: Supple without lymphadenopathy. Trachea midline. Heart: S1 S2. Regular rate and rhythm. Lungs: No crackles or wheezes are heard. Abdomen: Soft, exquisite tenderness right upper quadrant no appreciable tenderness in the midepigastric region. nondistended with bowel sounds. No peritoneal signs. No palpable organomegaly or masses. Extremities: Normal skin color and turgor. No cyanosis, rash, ulceration, clubbing, or edema. Radial and pedal pulses are 2/4 bilaterally. Neurological: No focal deficits. Strength and sensation are grossly intact. Results CBC & Chem 7: 03/16/17 06:58 03/16/17 06:58 Labs: Abnormal Lab Results - Last 24 Hours (Table) 03/15/17 03/16/17 03/16/17 Range/Units 21:17 06:58 06:58 RBC 3.87 L (4.30-5.90) m/uL Hgb 12.5 L (13.0-17.5) gm/dL Hct 36.3 L (39.0-53.0) % Plt Count 137 L (150-450) k/uL Lymphocytes # 0.9 L (1.0-4.8) k/uL Chloride 111 H (98-107) mmol/L Glucose 116 H (74-99) mg/dL POC Glucose (mg/dL) 197 H (75-99) mg/dL Calcium 8.1 L (8.4-10.2) mg/dL Phosphorus 1.7 L (2.5-4.5) mg/dL Total Bilirubin 2.0 H (0.2-1.3) mg/dL Delta Bilirubin 1.0 H (0.0-0.2) mg/dL ALT 155 H (21-72) U/L Alkaline Phosphatase 160 H (38-126) U/L Total Protein 5.1 L (6.3-8.2) g/dL Albumin 2.6 L (3.5-5.0) g/dL 03/16/17 Range/Units 07:05 RBC (4.30-5.90) m/uL Hgb (13.0-17.5) gm/dL Hct (39.0-53.0) % Plt Count (150-450) k/uL Lymphocytes # (1.0-4.8) k/uL Chloride (98-107) mmol/L Glucose (74-99) mg/dL POC Glucose (mg/dL) 119 H (75-99) mg/dL Calcium (8.4-10.2) mg/dL Phosphorus (2.5-4.5) mg/dL Total Bilirubin (0.2-1.3) mg/dL Delta Bilirubin (0.0-0.2) mg/dL ALT (21-72) U/L Alkaline Phosphatase (38-126) U/L Total Protein (6.3-8.2) g/dL Albumin (3.5-5.0) g/dL US - abdomen: report reviewed (Reviewed by Dr. Jorge) Assessment and Plan Plan: Impression: 1. Acute right upper quadrant abdominal pain possible sepsis possible cholangitis with mild hyperbilirubinemia, transaminitis with fever suspect acute cholecystitis with cholelithiasis and possible choledocholithiasis however ultrasound imaging reported thickened gallbladder wall with 0.9 cm gallstone in the neck; Mirrizzi syndrome to be considered within the differential with external compression of common hepatic duct causing mild elevation of liver enzymes. Conjugated bilirubin not measurable. Recommendations: 1. Continue the IV antibiotics. Gen. surgical consultation. Patient is scheduled for surgery today. From a GI standpoint agreeable to proceed with laparoscopic cholecystectomy today recommend intraoperative cholangiogram if possible. If patient's transaminases do not improve postoperatively we'll consider proceeding with ERCP for evaluation of choledocholithiasis. We'll obtain hepatitis panel. Case was discussed with Dr. Connors's nurse practitioner Millie Landry. Thank you for this kind referral and the opportunity to participate in the care of your patient. This consultation was discussed with Dr. Jorge. The impression and plan of care have been directed as dictated.
[2017-03-16 12:08] LABS: Glucose,Whole Blood 99 mg/dL (75-99)
[2017-03-16] MEDS: PIPERACILLIN-TAZOBACTAM 3.375 GM in DEXTROSE/WATER 1 50ML.BAG IVPB SCH ×2 (13:00→21:27)
[2017-03-16] MEDS ORDERED: IV FLUID CONTINUATION 1,000 ML IV ONE (14:18)
[2017-03-16] MEDS ORDERED: ePHEDrine 50 MG/ML 1 ML AMP ONE (14:53)
[2017-03-16] MEDS ORDERED: SUCCINYLCHOLINE CHLORIDE 100 MG/5 ML SYR IV ONE (14:53)
[2017-03-16] MEDS ORDERED: ROCURONIUM BROMIDE 10 MG/ML 10 ML VIAL IV ONE (14:53)
[2017-03-16] MEDS ORDERED: LIDOCAINE 1% INJ 10MG/ML (20 ML MDV) ONE (14:53)
[2017-03-16] MEDS ORDERED: MIDAZOLAM 2 MG/2 ML VIAL ONE (14:53)
[2017-03-16] MEDS ORDERED: NEOSTIGMINE 1 MG/ML 10 ML VIAL ONE (14:53)
[2017-03-16] MEDS ORDERED: HYDROmorphone (PF) 1 MG/ML ONE (14:53)
[2017-03-16] MEDS ORDERED: GLYCOPYRROLATE 0.2 MG/ML 2 ML VIAL ONE (14:53)
[2017-03-16] MEDS ORDERED: fentaNYL (PF) 50 MCG/ML 2 ML AMP ONE (14:53)
[2017-03-16] MEDS ORDERED: PROPOFOL 10 MG/ML 20 ML VIAL IV ONE (14:53)
[2017-03-16 14:54] LABS: Hepatitis B Surface Ag Index 0.06
[2017-03-16 15:00] LABS: Hepatitis B Core IgM Index 0.03
[2017-03-16 15:11] LABS: Hepatitis C Virus IgG Index 0.04
[2017-03-16 15:15] LABS: Hepatitis C Virus IgG Ab Negative (Negative)
[2017-03-16] MEDS: SODIUM CHLORIDE 0.9% 1,000 ML IV SCH (15:17)
[2017-03-16] MEDS ORDERED: BUPIVACAIN-EPI 0.25%-1:200,000 30 ML VIAL SQ ONE (15:23)
[2017-03-16] MEDS ORDERED: LACTATED RINGERS 1,000 ML IV ONE (15:37)
--- NOTE | 2017-03-16 16:21 | P.OP ---
Date of Procedure: 03/16/17 Preoperative Diagnosis: Acute cholecystitis Gram negative septicemia Type 2 DM Obesity BMI 32 Jaundice Postoperative Diagnosis: Same Procedure(s) Performed: Laparoscopic cholecystectomy Laparoscopic liver biopsy Anesthesia: [place]AV[place] Surgeon: Darlene Connors Pathology: other (gallbladder, liver bx) Condition: stable Disposition: PACU Indications for Procedure: 66 years old male presented with acute onset right upper quadrant pain. He had elevated LFTs at presentation. Bilirubin is trending down. Ultrasound showed gallstones and thickened gallbladder wall. Informed consent obtained and patient elected to undergo laparoscopic cholecystectomy, possible open and all indicated procedures. The risks, benefits and potential complications including bleeding, infection, inadvertent bile duct injury were discussed Operative Findings: Acute cholecystitis Multiple less than 1 cm white lesions in the bilateral lobes of the liver. One of these was biopsied. Description of Procedure: The patient was brought to the operating room and placed in supine position with both arms out. General anesthesia with endotracheal intubation was performed as per anesthesia team. Chlorhexidine was used to prep the abdomen followed by application of sterile drapes. A timeout was performed to verify correct patient and correct procedure. Patient was confirmed to receive perioperative IV antibiotics , heparin 5000 units subcutaneous injection and bilateral SCDs were placed. A 5 mm skin incision was made below the left costal margin at the anterior axillary line. A Veress needle was inserted and pneumoperitoneum was established to a pressure of 15 mmHg. A 5 mm Optiview trocar was loaded on a 5 mm 30 laparoscope and the peritoneal cavity was entered under direct vision using the Optiview technique. Additional 5 mm trocar was placed in the supraumbilical location and two 5 mm trocars along the right subcostal margin. The left 5 mm trocar was upsized to 10mm. The patient was placed in reverse Trendelenburg with right side up. There were multiple less than 1 cm nodules in the bilateral lobes of the liver, the one on the right liver edge was biopsied using Bovie .The fundus of the gallbladder was grasped with an atraumatic grasper and was retracted over the dome of the liver. The infundibulum was grasped with an atraumatic grasper and retracted towards the pelvis to expose the Calot's triangle. Lateral and medial peritoneal attachment of the gallbladder bladder was dissected. Circumferential dissection was carried out around the cystic artery and the cystic duct to obtain adequate length for clip application. All the surrounding fibrofatty tissue were removed. Critical view was obtained with cystic duct and cystic artery as the only two structures entering the gallbladder. Two clips were applied on the patient's side and one on the specimen side on the cystic duct first followed by the cystic artery. Endoshears were used to divide the cystic duct and the cystic artery. The gallbladder was taken off the liver bed using a L-hook. It was placed in an endocatch specimen bag and removed through the 10mm port. The gallbladder was passed off as a specimen. The abdominal cavity was inspected. The clips on the cystic duct and cystic artery stump were intact and no bleeding noted from the liver bed. All the trocar sites were examined and no evidence of bleeding. The 10mm port site was closed with two transfascial sutures of 0 Vicryl using a Thierno Elizabeth device. The pneumoperitoneum was evacuated and all the trocars were removed. Local anesthetic was infiltrated along the trocar sites and incisions were closed using 4-0 Monocryl followed by application of Dermabond skin glue. The sponge, instrument and needle count were correct x2. Patient was extubated and taken to post anesthesia care unit in stable condition.
[2017-03-16] MEDS: HYDROmorphone 1 MG/ML 1 ML SYRINGE IVP ONE ×2 (16:45→16:50)
[2017-03-16 16:46] LABS: Glucose,Whole Blood 102 mg/dL (75-99)
[2017-03-16] MEDS: MEPERIDINE 50 MG/ML SYRINGE IVP ONE ×2 (17:01→17:10)
[2017-03-16] MEDS ORDERED: SODIUM CHLORIDE 0.9% 1,000 ML IV ONE (17:24)
[2017-03-16] MEDS: LEVALBUTEROL NEB 1.25 MG/3 ML AMP INHALATION SCH (19:22)
[2017-03-16 19:51] LABS: Glucose,Whole Blood 112 mg/dL (75-99)
[2017-03-16] MEDS ORDERED: LATANOPROST 0.005% OPHTH DROPS 2.5 ML BTL BOTH EYES SCH (21:00)
[2017-03-16] MEDS: INSULIN DETEMIR 100 UNIT/ML 10 ML VIAL SQ SCH (21:28)
--- NOTE | 2017-03-16 21:48 | HP ---
DATE OF ADMISSION: 03/15/2017 HISTORY OF PRESENT ILLNESS: This 66-year-old gentleman with a past medical history of atrial fibrillation, diabetes, history of appendectomy, history of DJD being followed by Dr. Martins in the outpatient setting area. The patient is complaining of severe abdominal pain which is right upper quadrant and the patient had some chills also. The patient came to [facility] and admitted to the hospital for further evaluation and treatment. The patient also complains of some cough and shortness of breath also for the last couple of days and some right-sided chest pains as well. The patient also had an episode of pneumonia previously in December 2016. There is no history of fevers, rigors or chills. No history of headache, loss of consciousness, seizures at this time. PAST MEDICAL HISTORY: History of atrial fibrillation, diabetes, appendectomy, history of pneumonia. Medications prior to admission include home medications: 1. Januvia 100 mg p.o. daily. 2. Demadex 20 mg p.o. daily. 3. Detrol LA 4 mg daily. 4. Flomax 0.4 daily. 7. Xalatan 0.4 1 drop both eyes. 8. Apidra subcu a.c. and q.h.s. 9. Insulin 25 units subcu q.h.s. 11. Nexium 40 mg p.o. daily. 13. Ecotrin 81 mg daily. 14. Zyloprim 300 mg p.o. daily. 15. [place] 5 mg 16. Colace 500 mg p.o. b.i.d. ALLERGIES: PLAVIX, NIACIN AND XARELTO, STATINS. FAMILY HISTORY: No history of heart disease or strokes in the family. SOCIAL HISTORY: Previous history of smoking. No history of current smoking. No alcohol intake. REVIEW OF SYSTEMS: ENT: No diminishing hearing. No diminished vision. CARDIOVASCULAR: No angina. RESPIRATORY: No cough. No hemoptysis. GI: As mentioned earlier. : No dysuria. Nervous system: No numbness or weakness. ALLERGY/IMMUNOLOGY: No asthma or hayfever. MUSCULOSKELETAL: As mentioned earlier. HEMATOLOGY/ONCOLOGY: No history of anemia. ENDOCRINE: Diabetes. CONSTITUTIONAL: As mentioned earlier. DERMATOLOGY: Negative. RHEUMATOLOGY: Negative. PSYCHIATRY: As mentioned earlier. PHYSICAL EXAMINATION: The patient is alert and oriented times three. Blood pressure 143/76. Respiratory rate 16. Temperature 98.4, pulse ox 94% on room air. HEENT: Conjunctivae normal. Oral mucosa moist. NECK: No jugular venous distention. No carotid bruit. No lymph node enlargement. CARDIOVASCULAR: Normal S1, S2. No S3, no S4. RESPIRATORY: Breath sounds diminished at the bases. No rhonchi. No crackles. ABDOMEN: Soft. Mild diffuse tenderness in the epigastrium and right upper quadrant. No hepatosplenomegaly. No ascites. No rigidity. LEGS: No edema. No swelling. Nervous system: Higher function as mentioned earlier. Moves all four limbs. No focal deficits. LYMPHATICS: No lymph nodes palpable in the neck, axillae or groin. SKIN: No ulcer, rash or bleeding. LABS: At this point, WBC 7.2, hemoglobin 12.5. Otherwise, ALT is 150. Alkaline phosphatase 160. Admission labs are WBC 9.7. Sodium is 132, AST, ALT, alkaline phosphatase all three elevated. ASSESSMENT: 1. Acute abdominal pain with possible acute cholelithiasis and cholecystitis. 2. Increased AST, ALT and alkaline phosphatase. 3. Hypomagnesemia. 4. Increased total bilirubin. 5. Hypoalbuminemia with mild to moderate protein calorie malnutrition. 6. Diabetes mellitus type 2. 7. Hyponatremia. 8. Anemia, normocytic. 9. Mild thrombocytopenia. 10. Atrial fibrillation history. 11. History of degenerative joint disease. 12. Remote history nicotine dependence. 13. Right bundle block on EKG with a normal sinus rhythm. 14. Right basilar atelectasis. RECOMMENDATIONS AND DISCUSSION: In this 66 -year-old male with multiple medical issues, we will monitor the patient closely, surgery has been consulted. Otherwise, the patient is medically stable to undergo the surgery. Continue the current medications. Also recommend incentive spirometry and a course of breathing treatments also. Further recommendations to follow. Recommend the patient to follow up with primary care physician closely after discharge regarding the above medical issues. IVAND
[2017-03-17] MEDS: HEPARIN SODIUM,PORCINE 5,000 UNIT/ML 1 ML VIAL SQ SCH ×4 (00:15→23:33)
[2017-03-17] MEDS: SODIUM CHLORIDE 0.9% 1,000 ML IV SCH ×2 (04:22→11:19)
[2017-03-17] MEDS: PIPERACILLIN-TAZOBACTAM 3.375 GM in DEXTROSE/WATER 1 50ML.BAG IVPB SCH ×3 (04:27→21:24)
[2017-03-17 07:21] LABS: Glucose,Whole Blood 77 mg/dL (75-99)
[2017-03-17] MEDS: OXYBUTYNIN XL 5 MG TAB.ER.24 PO SCH (07:26)
[2017-03-17] MEDS: TAMSULOSIN 0.4 MG CAP.ER.24H PO SCH (07:26)
[2017-03-17] MEDS: ALLOPURINOL 300 MG TAB PO SCH (07:26)
[2017-03-17] MEDS: TORSEMIDE 20 MG TAB PO SCH (07:26)
[2017-03-17] MEDS: INSULIN LISPRO (humaLOG) 300 UNIT/3 ML VIAL SQ SCH ×4 (07:27→21:24)
[2017-03-17 07:55] LABS: Basophils % (A) 0 %; CH 31.9; CHCM 33.6; Eosinophils % (A) 1 %; HCT 35.7 % (39.0-53.0); HDW 2.82; HGB 11.9 gm/dL (13.0-17.5); Luc # (Auto) 0.15; Luc % (Auto) 2; Lymphocytes # (A) 1.1 k/uL (1.0-4.8); Lymphocytes % (A) 15 %; MCH 31.7 pg (25.0-35.0); MCHC 33.2 g/dL (31.0-37.0); MCV 95.4 fL (80.0-100.0); Mean Platelet Volume 7.5; Monocytes # (A) 0.5 k/uL (0-1.0); Monocytes % (A) 7 %; Neutrophils # (A) 5.6 k/uL (1.3-7.7); Neutrophils % (A) 76 %; RBC 3.74 m/uL (4.30-5.90); RDW 14.6 % (11.5-15.5); WBC 7.3 k/uL (3.8-10.6); WBC (Perox) 7.47
[2017-03-17 08:15] LABS: ALT 114 U/L (21-72); AST 40 U/L (17-59); Alkaline Phosphatase 132 U/L (38-126); Anion Gap 6 mmol/L; Blood Urea Nitrogen 8 mg/dL (9-20); Calcium 8.5 mg/dL (8.4-10.2); Carbon Dioxide 25 mmol/L (22-30); Chloride 108 mmol/L (98-107); Glucose 76 mg/dL (74-99); Non-African American GFR(MDRD) >60 (>60 ml/min/1.73 sqM); Potassium 3.4 mmol/L (3.5-5.1); Sodium 139 mmol/L (137-145); Total Bilirubin 1.5 mg/dL (0.2-1.3); Total Protein 5.3 g/dL (6.3-8.2)
[2017-03-17] MEDS: LEVALBUTEROL NEB 1.25 MG/3 ML AMP INHALATION SCH ×3 (08:24→18:58)
--- NOTE | 2017-03-17 08:37 | P.PN ---
Subjective Principal diagnosis: sepsis cholecystitis 66-year-old gentleman admitted with sepsis, acute right upper quadrant abdominal pain with fever and elevated liver enzymes. He underwent laparoscopic cholecystectomy with liver biopsy yesterday for acute cholecystitis. Gram-negative blood cultures. Infectious disease consulted. Reports improvement in abdominal pain this morning. Afebrile. Liver enzymes improving; total bilirubin 1.5. AST 40. ALT 114. Alkaline phosphatase 132. CEA and CA-19-9 pending. Hepatitis panel negative. Objective - Vital Signs Vital signs: Vital Signs Temp 98.5 F 03/17/17 07:00 Pulse 76 03/17/17 07:00 Resp 16 03/17/17 07:00 BP 114/55 03/17/17 07:00 Pulse Ox 99 03/17/17 07:00 Intake & Output 03/16/17 03/17/17 03/17/17 18:59 06:59 18:59 Intake Total 2720 435 Output Total 10 Balance 2710 435 Weight 101.151 kg Intake: IV 1720 Intake, IV Titration 1000 435 Amount Sodium Chloride 0.9% 1, 1000 435 000 ml @ 125 mls/hr IV . Q8H [facility] Rx#:[id number] Output: Estimated Blood Loss 10 Other: Voiding Method Toilet Urinal # Voids 2 - Exam General appearance: The patient is alert, oriented, in no acute distress. HET: Head is normocephalic and atraumatic. Pupils are equal and reactive. Oropharynx is clear without lesions. Neck: Supple without lymphadenopathy. Trachea midline. Heart: S1 S2. Regular rate and rhythm. Lungs: No crackles or wheezes are heard. Abdomen: Soft, laparoscopic incisions without erythema or drainage, nondistended with bowel sounds. No peritoneal signs. No palpable organomegaly or masses. Extremities: Normal skin color and turgor. No cyanosis, rash, ulceration, clubbing, or edema. Radial and pedal pulses are 2/4 bilaterally. Neurological: No focal deficits. Strength and sensation are grossly intact. - Labs CBC & Chem 7: 03/17/17 07:33 03/17/17 07:33 Labs: Abnormal Lab Results - Last 24 Hours (Table) 03/16/17 03/16/17 03/16/17 Range/Units 06:58 16:44 19:48 RBC (4.30-5.90) m/uL Hgb (13.0-17.5) gm/dL Hct (39.0-53.0) % Plt Count (150-450) k/uL Potassium (3.5-5.1) mmol/L Chloride (98-107) mmol/L BUN (9-20) mg/dL POC Glucose (mg/dL) 102 H 112 H (75-99) mg/dL Hemoglobin A1c 7.0 H (4.2-6.1) % Total Bilirubin (0.2-1.3) mg/dL ALT (21-72) U/L Alkaline Phosphatase (38-126) U/L Total Protein (6.3-8.2) g/dL Albumin (3.5-5.0) g/dL 03/17/17 03/17/17 Range/Units 07:33 07:33 RBC 3.74 L (4.30-5.90) m/uL Hgb 11.9 L (13.0-17.5) gm/dL Hct 35.7 L (39.0-53.0) % Plt Count 146 L (150-450) k/uL Potassium 3.4 L (3.5-5.1) mmol/L Chloride 108 H (98-107) mmol/L BUN 8 L (9-20) mg/dL POC Glucose (mg/dL) (75-99) mg/dL Hemoglobin A1c (4.2-6.1) % Total Bilirubin 1.5 H (0.2-1.3) mg/dL ALT 114 H (21-72) U/L Alkaline Phosphatase 132 H (38-126) U/L Total Protein 5.3 L (6.3-8.2) g/dL Albumin 2.5 L (3.5-5.0) g/dL Assessment and Plan (1) Acute cholecystitis Narrative/Plan: Status post laparoscopic cholecystectomy with liver biopsy Status: Acute (2) Cholelithiasis Status: Acute (3) Elevated liver enzymes Narrative/Plan: Improved possible underlying chronic liver disease awaiting liver biopsy result Status: Acute (4) Sepsis Narrative/Plan: Secondary to acute cholecystitis and gram-negative bacteremia and cholangitis Status: Acute (5) Gram-negative bacteremia Status: Acute Plan: 1. Diet advancement per surgery. 2. ERCP not indicated at this time his liver enzymes are improving. Will await liver biopsy report. 3. IV antibiotics per infectious disease. 4. Return to GI office in 1-2 weeks after discharge for reevaluation and discussion of liver biopsy. Assessment and plan of care discussed with Dr. Jorge
--- NOTE | 2017-03-17 09:32 | CONS ---
DATE OF CONSULTATION: 03/16/2017 REASON FOR CONSULTATION: Gram-negative bacteremia. HISTORY OF PRESENT ILLNESS: The patient is a 66-year-old male presenting to the [facility] ER with chief complaints of right upper quadrant pain that started yesterday. The patient did have associated chills and felt nausea, but no vomiting. Denies any significant associated diarrhea or constipation. No significant chest pain, shortness of breath or significant cough. With these symptoms, the patient presented to the [facility] ER. The patient was evaluated by the ER physician. The patient did have fever of 101 degrees Fahrenheit. He did have evidence of acute cholecystitis on the ultrasound. He did have blood cultures obtained which came back positive with gram-negative bacilli. I was asked to see the patient for further recommendations and continue antibiotic therapy. Patient was seen in the preop setting and been getting Zosyn and scheduled for surgery, which the patient got this afternoon with laparoscopic cholecystectomy and liver biopsy. REVIEW OF SYSTEMS: CONSTITUTIONAL: Positive for weakness along with fever and chills. EYES: No complaint. ENT: No complaint. RESPIRATORY: Some shortness of breath and cough. CARDIOVASCULAR: No complaint. GENITOURINARY: No complaint. GASTROINTESTINAL: As per HPI. MUSCULOSKELETAL: No complaint. INTEGUMENTARY: No complaint. PSYCHOLOGICAL: No complaint. ENDOCRINE: No complaint. NEUROLOGICAL: No complaint. PAST MEDICAL HISTORY: Atrial fibrillation, diabetes mellitus, and pneumonia. PAST SURGICAL HISTORY: Appendectomy. SOCIAL HISTORY: Remote history of smoking. No drinking or drug use. FAMILY HISTORY: No pertinent findings were noticed. ALLERGIES: MYCIN, XARELTO AND STATINS. Medications currently include the patient is on Tylenol, [place], Zyloprim, heparin, Dilaudid, Levemir, Humalog, Narcan, pip-tazobactam, Flomax and Demadex. On examination, blood pressure is 152/57 with a pulse of 90, temperature of 98.4 with a T-max of 101.7. He is 94% on 3-L nasal cannula. General description is an elderly male, lying in bed in no distress. No tachypnea or accessory muscle of respiration use. HEENT examination shows slight pallor. No scleral icterus. Oral mucosa membranes dry. NECK: Trachea central. There is no thyromegaly. LUNGS: Unlabored breathing. Clear to auscultation anteriorly. No wheeze or crackle. HEART: S1, S2 regular rate and rhythm. ABDOMEN: Soft. Tender in right upper quadrant area. No guarding or rigidity. EXTREMITIES: No edema of feet. SKIN EXAMINATION: No rash or mass palpable. NEUROLOGICAL: The patient is awake, alert, oriented x3. Mood and affect normal. LABS: Hemoglobin is 12.5, white count 7.5 with a BUN of 10, creatinine 0.70. Liver enzymes are elevated. Blood culture with gram-negative bacilli. Chest x-ray on this admission as above. DIAGNOSTIC IMPRESSION AND PLAN: Patient present to the hospital with sepsis in a patient who did have fever of 101 degrees Fahrenheit with a pulse of 98, now with gram-negative bacteremia, source is acute cholecystitis and likely of enteric origin. PLAN: 1. Zosyn 3.375 gram IV piggyback added for coverage for gram-negative pathogen. 2. aggressive IV fluid. 3. Would follow up with clinical condition and cultures to further adjust the medication if needed. Thank you for this consultation. Will follow this patient along with you. ROBERT
[2017-03-17] MEDS: BISACODYL 10 MG SUPP RECTAL STA ×2 (11:19→20:57)
[2017-03-17 12:26] LABS: Glucose,Whole Blood 138 mg/dL (75-99)
--- NOTE | 2017-03-17 12:41 | P.PN ---
Subjective 66-year-old male being seen by surgical services morning. Patient states pain medication effective for pain control. Patient reports abdominal pain significantly improved Patient is postop March 16 laparoscopic cholecystectomy with liver biopsies for acute cholecystitis. Blood culture positive gram-negative infectious disease following. A GI consultation has been requested For elevated liver enzymes Which are improving the ALT this morning is 114 it was 155 and on admission 262 PSA 1.25. CA antigen 19 9 pending Objective - Vital Signs Vital signs: Vital Signs Temp 98.5 F 03/17/17 07:00 Pulse 78 03/17/17 08:43 Resp 16 03/17/17 07:00 BP 114/55 03/17/17 07:00 Pulse Ox 99 03/17/17 07:00 Intake & Output 03/16/17 03/17/17 03/17/17 18:59 06:59 18:59 Intake Total 2720 435 Output Total 10 Balance 2710 435 Weight 101.151 kg Intake: IV 1720 Intake, IV Titration 1000 435 Amount Sodium Chloride 0.9% 1, 1000 435 000 ml @ 125 mls/hr IV . Q8H [facility] Rx#:[id number] Output: Estimated Blood Loss 10 Other: Voiding Method Toilet Toilet Urinal # Voids 2 - Exam Physical exam Pleasant 66-year-old man sitting up in bed states abdominal pain improved pain medication effective for pain control Lungs essentially clear adequate air movement on room air Heart S1-S2 audible and regular denying chest pain states Abdomen soft laparoscopic incisions no redness no drainage not distended bowel tones present states urinating no difficulty no nausea no vomiting Extremities no edema noted - Labs CBC & Chem 7: 03/17/17 07:33 03/17/17 07:33 Labs: Abnormal Lab Results - Last 24 Hours (Table) 03/16/17 03/16/17 03/17/17 Range/Units 16:44 19:48 07:33 RBC 3.74 L (4.30-5.90) m/uL Hgb 11.9 L (13.0-17.5) gm/dL Hct 35.7 L (39.0-53.0) % Plt Count 146 L (150-450) k/uL Potassium (3.5-5.1) mmol/L Chloride (98-107) mmol/L BUN (9-20) mg/dL POC Glucose (mg/dL) 102 H 112 H (75-99) mg/dL Total Bilirubin (0.2-1.3) mg/dL ALT (21-72) U/L Alkaline Phosphatase (38-126) U/L Total Protein (6.3-8.2) g/dL Albumin (3.5-5.0) g/dL 03/17/17 03/17/17 Range/Units 07:33 12:17 RBC (4.30-5.90) m/uL Hgb (13.0-17.5) gm/dL Hct (39.0-53.0) % Plt Count (150-450) k/uL Potassium 3.4 L (3.5-5.1) mmol/L Chloride 108 H (98-107) mmol/L BUN 8 L (9-20) mg/dL POC Glucose (mg/dL) 138 H (75-99) mg/dL Total Bilirubin 1.5 H (0.2-1.3) mg/dL ALT 114 H (21-72) U/L Alkaline Phosphatase 132 H (38-126) U/L Total Protein 5.3 L (6.3-8.2) g/dL Albumin 2.5 L (3.5-5.0) g/dL Assessment and Plan Plan: Impression Present on admission right upper quadrant pain fever chills suspect due to acute cholecystitis Present on admission febrile leukocytosis sepsis suspect due to acute cholecystitis and gram-negative bacteremia and cholangitis History of a recent admission for pneumonia December 2016 Paroxysmal atrial fibrillation 12-lead EKG shows sinus Present on admission elevated liver enzymes improving possible underlying chronic liver disease await liver biopsy result Present on admission positive blood culture gram-negative bacilli Status post March 16 laparoscopic cholecystectomy with liver biopsies Type 2 diabetes insulin requiring Plan Follow-up on liver biopsy results ending Continue the IV antibiotics Rocephin and Flagyl Continue recommendations by Infectious disease consultation Continue postop surgical care IV fluid for hydration DVT and GI prophylaxis Further recommendations pending The above dictated assessment and findings were discussed with dr deon Bello and the plan of care have been dictated as directed. Millie Landry nurse practitioner acting as a scribe for dr rose
[2017-03-17 16:55] LABS: Glucose,Whole Blood 147 mg/dL (75-99)
[2017-03-17 21:19] LABS: Glucose,Whole Blood 199 mg/dL (75-99)
[2017-03-17] MEDS: INSULIN DETEMIR 100 UNIT/ML 10 ML VIAL SQ SCH (21:25)
[2017-03-18] MEDS: PIPERACILLIN-TAZOBACTAM 3.375 GM in DEXTROSE/WATER 1 50ML.BAG IVPB SCH ×4 (04:00→21:13)
[2017-03-18 06:56] LABS: Glucose,Whole Blood 78 mg/dL (75-99)
[2017-03-18] MEDS: LEVALBUTEROL NEB 1.25 MG/3 ML AMP INHALATION SCH ×2 (07:54→13:13)
[2017-03-18] MEDS: INSULIN LISPRO (humaLOG) 300 UNIT/3 ML VIAL SQ SCH ×4 (08:35→21:14)
[2017-03-18] MEDS: HEPARIN SODIUM,PORCINE 5,000 UNIT/ML 1 ML VIAL SQ SCH ×2 (08:35→16:51)
[2017-03-18] MEDS: OXYBUTYNIN XL 5 MG TAB.ER.24 PO SCH (08:36)
[2017-03-18] MEDS: ALLOPURINOL 300 MG TAB PO SCH (08:36)
[2017-03-18] MEDS: TORSEMIDE 20 MG TAB PO SCH (08:37)
[2017-03-18] MEDS: TAMSULOSIN 0.4 MG CAP.ER.24H PO SCH (08:37)
--- NOTE | 2017-03-18 09:21 | PN ---
DATE OF SERVICE: 03/17/2017 This 66-year-old gentleman admitted with cholecystitis and cholelithiasis, also had features of sepsis also. The culture showed gram-negative bacilli. The patient underwent laparoscopic cholecystectomy with liver biopsy by Dr. Connors. No chest pain, no palpitations, no fever. On exam, alert and oriented x3. Pulse 58, blood pressure 121/71, respirations 16, temperature 97.8, pulse ox 92% on room air. HEENT: Conjunctivae normal. NECK: No jugular venous distention. CARDIOVASCULAR: S1 and S2, muffled. RESPIRATORY: Breath sounds diminished at the bases. A few scattered rhonchi. ABDOMEN: Soft, status post surgery. LEGS: No edema, no swelling. NERVOUS SYSTEM: No focal deficits. LABS: WBC 7.3, hemoglobin 11.9, platelet 176, potassium 3.4. ASSESSMENT: 1. Acute cholelithiasis and cholecystitis, status post laparoscopic cholecystectomy and liver biopsy. 2. Increased AST, ALT, alkaline phosphatase. 3. Hypomagnesemia. 4. Increased total bilirubin. 5. Hypoalbuminemia with mild to moderate protein calorie malnutrition. 6. Diabetes mellitus type 2. 7. Hyponatremia. 8. Anemia, normocytic. 9. Mild thrombocytopenia. 10. Atrial fibrillation history, paroxysmal. 11. History of degenerative joint disease. 12. Remote history of nicotine dependence. 13. Right bundle branch block on EKG with a normal sinus rhythm. 14. Right basilar atelectasis. RECOMMENDATIONS AND DISCUSSION: I recommend to continue the current medications, continue monitoring and symptomatic treatment. Otherwise incentive spirometry. Closely follow with Surgery. Further recommendations to follow.
--- NOTE | 2017-03-18 10:03 | P.PN ---
Subjective Postop day #2 laparoscopic cholecystectomy with liver biopsies The patient is postop day #2 for laparoscopic cholecystectomy with liver biopsies. Blood cultures were positive for gram-negative organisms and patient is on IV antibiotics. GI consultation was obtained secondary to elevated liver enzymes. Patient was seen and evaluated by the GI services and follow him as an outpatient. At this time the patient is doing well and tolerating diet without difficulty. He has no complaints. Blood cultures are still pending. The case has been discussed with Dr. gilliam with infectious disease and his discharge will be held until final culture results are available. Objective - Vital Signs Vital signs: Vital Signs Temp 98.1 F 03/18/17 07:30 Pulse 92 03/18/17 08:08 Resp 16 03/18/17 07:30 BP 115/82 03/18/17 07:30 Pulse Ox 97 03/18/17 07:30 Intake & Output 03/17/17 03/18/17 03/18/17 18:59 06:59 18:59 Intake Total 950 320 Balance 950 320 Weight 101.151 kg Intake: Intake, IV Titration 550 Amount Piperacillin-Tazobactam 3 50 .375 gm In Dextrose/Water 1 50ml.bag @ 12.5 mls/hr IVPB Q8H [facility] Rx#: [id number] Sodium Chloride 0.9% 1, 500 000 ml @ 125 mls/hr IV . Q8H [facility] Rx#:[id number] Oral 400 320 Other: Voiding Method Toilet Toilet # Voids 2 - Constitutional General appearance: Present: average body habitus, no acute distress - Respiratory Respiratory: bilateral: CTA - Cardiovascular Rhythm: regular Heart sounds: normal: S1, S2 - Gastrointestinal Gastrointestinal Comment(s): Incisions clean and dry General gastrointestinal: Present: normal bowel sounds - Psychiatric Psychiatric: Present: A&O x's 3, appropriate affect, intact judgment & insight - Labs CBC & Chem 7: 03/17/17 07:33 03/17/17 07:33 Labs: Abnormal Lab Results - Last 24 Hours (Table) 03/17/17 03/17/17 03/17/17 Range/Units 07:33 12:17 16:52 Potassium 3.4 L (3.5-5.1) mmol/L Chloride 108 H (98-107) mmol/L BUN 8 L (9-20) mg/dL POC Glucose (mg/dL) 138 H 147 H (75-99) mg/dL Total Bilirubin 1.5 H (0.2-1.3) mg/dL ALT 114 H (21-72) U/L Alkaline Phosphatase 132 H (38-126) U/L Total Protein 5.3 L (6.3-8.2) g/dL Albumin 2.5 L (3.5-5.0) g/dL 03/17/17 Range/Units 21:16 Potassium (3.5-5.1) mmol/L Chloride (98-107) mmol/L BUN (9-20) mg/dL POC Glucose (mg/dL) 199 H (75-99) mg/dL Total Bilirubin (0.2-1.3) mg/dL ALT (21-72) U/L Alkaline Phosphatase (38-126) U/L Total Protein (6.3-8.2) g/dL Albumin (3.5-5.0) g/dL Assessment and Plan Plan: Impression/plan: 1. 66 year-old white male status post laparoscopic cholecystectomy acute cholecystitis 2. Positive blood cultures awaiting final results Plan: 1. Continue present therapy 2. Await culture results prior to discharge as per infectious disease 3. GI following 4. Await liver biopsy results
--- NOTE | 2017-03-18 10:39 | PN ---
DATE OF SERVICE: 03/17/2017 Reason for followup is gram-negative bacteremia and acute cholecystitis. INTERVAL HISTORY: The patient is afebrile. Has been breathing comfortably. Pain to the right lower quadrant area is currently controlled. Patient denies having any nausea or vomiting. No abdominal pain or any diarrhea. On examination, blood pressure is 121/71 with a pulse of 70, temperature 97.9. He is 92% on room air. General description is an elderly male, lying in bed in no distress. RESPIRATORY SYSTEM: Unlabored breathing, clear to auscultation anteriorly. HEART: S1, S2, regular rate and rhythm. ABDOMEN: Soft, no tenderness. EXTREMITIES: No edema of the feet. LABS: Hemoglobin 11.9, white count 7.3, BUN of 8 with a creatinine of 0.74. Blood culture with gram-negative bacilli, ID sensitivity is pending. DIAGNOSTIC IMPRESSION AND PLAN: Patient admitted to hospital with sepsis with a gram-negative bacteremia associated with acute cholecystitis, status post cholecystectomy. Plan at this time is to continue the patient on Zosyn, adjusting antibiotics further on the basis of the culture report. Continue supportive care.
[2017-03-18 11:46] LABS: Glucose,Whole Blood 171 mg/dL (75-99)
[2017-03-18 16:27] LABS: ALT 103 U/L (21-72); AST 53 U/L (17-59); Alkaline Phosphatase 279 U/L (38-126); Anion Gap 10 mmol/L; Blood Urea Nitrogen 11 mg/dL (9-20); Calcium 9.8 mg/dL (8.4-10.2); Carbon Dioxide 31 mmol/L (22-30); Chloride 101 mmol/L (98-107); Glucose 185 mg/dL (74-99); Non-African American GFR(MDRD) >60 (>60 ml/min/1.73 sqM); Sodium 142 mmol/L (137-145); Total Bilirubin 1.3 mg/dL (0.2-1.3); Total Protein 6.8 g/dL (6.3-8.2)
[2017-03-18 16:33] LABS: Potassium 3.4 mmol/L (3.5-5.1)
[2017-03-18 16:34] LABS: Glucose,Whole Blood 197 mg/dL (75-99)
--- NOTE | 2017-03-18 19:46 | PN ---
DATE OF SERVICE: 03/18/2017 This 66-year-old gentleman was admitted with acute cholelithiasis and cholecystitis with sepsis. He had a laparoscopic cholecystectomy. Final ID of the gram-negative bacilli is being awaited. At this time Dr. Rose is following the patient closely. No chest pain or palpitations. No fever. On exam, alert and oriented x3. Pulse is 72, blood pressure 115/81, respirations 16, temperature 97.2, pulse ox 97% on room air. HEENT: Conjunctivae normal. NECK: No JVD. CARDIOVASCULAR SYSTEM: S1, S2 muffled. LUNGS: Breath sounds diminished in the bases. Scattered rhonchi. No crackles. ABDOMEN: Soft. Status post surgery. EXTREMITIES: Legs no edema. NERVOUS SYSTEM: No focal deficits. LABS: Accu-Cheks 78 and 171, WBC 7.3, hemoglobin 11.9, potassium 3.4, albumin is 2.5. Other labs are noted. ASSESSMENT: 1. Acute cholelithiasis and cholecystitis, status post laparoscopic cholecystectomy with liver biopsy with possible sepsis, present on admission. 2. Increased AST, ALT, and alkaline phosphatase. 3. Gram-negative bacilli in blood culture. 4. Hypomagnesemia. 5. Increased total bilirubin. 6. Hypoalbuminemia with mild to moderate malnutrition. 7. Diabetes mellitus type 2. 8. Hyponatremia. 9. Anemia, normocytic. 10. Mild thrombocytopenia. 11. Atrial fibrillation, history of paroxysmal. 12. History of degenerative joint disease. 13. Remote history of nicotine dependence. 14. Right bundle block on EKG with normal sinus rhythm. 15. Right basilar atelectasis. RECOMMENDATIONS AND DISCUSSION: In this 66-year-old gentleman who was admitted with multiple medical problems. At this time I would recommend to continue the current medical management, symptomatic treatment, await ID of the organism, repeat labs. Otherwise further recommendations to follow.
[2017-03-18] MEDS: ALBUTEROL NEBULIZED 2.5 MG/3 ML INHALATION SCH (20:24)
[2017-03-18] MEDS: INSULIN DETEMIR 100 UNIT/ML 10 ML VIAL SQ SCH (21:13)
[2017-03-18 21:33] LABS: Glucose,Whole Blood 161 mg/dL (75-99)
[2017-03-19] MEDS: HEPARIN SODIUM,PORCINE 5,000 UNIT/ML 1 ML VIAL SQ SCH ×2 (00:41→09:26)
[2017-03-19 02:44] VITALS: TEMP 98.2
[2017-03-19] MEDS: PIPERACILLIN-TAZOBACTAM 3.375 GM in DEXTROSE/WATER 1 50ML.BAG IVPB SCH ×2 (04:14→12:12)
[2017-03-19 07:06] LABS: Glucose,Whole Blood 62 mg/dL (75-99)
[2017-03-19] MEDS: ALBUTEROL NEBULIZED 2.5 MG/3 ML INHALATION SCH ×2 (07:06→11:18)
[2017-03-19 07:52] LABS: Glucose,Whole Blood 92 mg/dL (75-99)
[2017-03-19 07:56] LABS: Basophils % (A) 0 %; CH 31.8; CHCM 33.5; Eosinophils # (A) 0.2 k/uL (0-0.7); Eosinophils % (A) 3 %; HCT 37.5 % (39.0-53.0); HDW 2.87; HGB 12.2 gm/dL (13.0-17.5); Luc # (Auto) 0.18; Luc % (Auto) 3; Lymphocytes # (A) 1.5 k/uL (1.0-4.8); Lymphocytes % (A) 24 %; MCH 31.2 pg (25.0-35.0); MCHC 32.6 g/dL (31.0-37.0); MCV 95.5 fL (80.0-100.0); Mean Platelet Volume 7.2; Monocytes # (A) 0.4 k/uL (0-1.0); Monocytes % (A) 7 %; Neutrophils # (A) 3.9 k/uL (1.3-7.7); Neutrophils % (A) 63 %; RBC 3.93 m/uL (4.30-5.90); RDW 14.5 % (11.5-15.5); WBC 6.3 k/uL (3.8-10.6); WBC (Perox) 6.37
--- NOTE | 2017-03-19 07:59 | P.PN ---
Subjective Postop day #2 laparoscopic cholecystectomy with liver biopsies The patient is postop day #3 from laparoscopic cholecystectomy with liver biopsies. Blood cultures were positive for gram-negative organisms and patient is on IV antibiotics. GI consultation was obtained secondary to elevated liver enzymes. Patient was seen and evaluated by the GI services and follow him as an outpatient. At this time the patient is doing well and tolerating diet without difficulty. He has no complaints. Blood cultures are positive for Klebsiella pneumonia. The case has been discussed with infectious disease and his discharge antibiotics will be recommended. Objective - Vital Signs Vital signs: Vital Signs Temp 98.2 F 03/18/17 23:00 Pulse 68 03/19/17 07:19 Resp 18 03/19/17 04:00 BP 115/56 03/18/17 23:00 Pulse Ox 94 L 03/19/17 07:08 Intake & Output 03/18/17 03/19/17 03/19/17 18:59 06:59 18:59 Intake Total 340 Balance 340 Weight 101.151 kg Intake: Oral 340 Other: Voiding Method Toilet # Voids 3 3 - Constitutional General appearance: Present: average body habitus - Respiratory Respiratory: bilateral: CTA - Cardiovascular Rhythm: regular Heart sounds: normal: S1, S2 - Gastrointestinal Gastrointestinal Comment(s): Incisions clean and dry General gastrointestinal: Present: normal bowel sounds - Psychiatric Psychiatric: Present: A&O x's 3, appropriate affect, intact judgment & insight - Labs CBC & Chem 7: 03/17/17 07:33 03/18/17 15:58 Labs: Abnormal Lab Results - Last 24 Hours (Table) 03/18/17 03/18/17 03/18/17 Range/Units 11:41 15:58 16:32 Potassium 3.4 L (3.5-5.1) mmol/L Carbon Dioxide 31 H (22-30) mmol/L Glucose 185 H (74-99) mg/dL POC Glucose (mg/dL) 171 H 197 H (75-99) mg/dL ALT 103 H (21-72) U/L Alkaline Phosphatase 279 H (38-126) U/L 03/18/17 03/19/17 Range/Units 21:11 07:05 Potassium (3.5-5.1) mmol/L Carbon Dioxide (22-30) mmol/L Glucose (74-99) mg/dL POC Glucose (mg/dL) 161 H 62 L (75-99) mg/dL ALT (21-72) U/L Alkaline Phosphatase (38-126) U/L Assessment and Plan Plan: Impression/plan: 1. 66 year-old white male status post laparoscopic cholecystectomy acute cholecystitis 2. Positive blood cultures for Klebsiella pneumonia Plan: 1. Discharge when okay with infectious disease 2. Infectious disease to recommend home antibiotics 3. GI following 4. Await liver biopsy results
--- NOTE | 2017-03-19 08:01 | P.DS ---
Providers Date of admission: 03/15/17 20:02 Attending physician: Maggie Maurice Consults: 03/15/17 20:35 Consult Physician Urgent Consulting Provider: Shae Marie Consult Reason/Comments: cbd stone Do you want consulting provider notified?: Yes 03/16/17 11:35 Consult Physician Stat Consulting Provider: Frank Rose Consult Reason/Comments: Recommendations antibiotic Do you want consulting provider notified?: Yes Primary care physician: Gregorio Cheng Plan - Discharge Summary New Discharge Prescriptions: Docusate [Colace] 100 mg PO BID #30 capsule Hydrocodone/Acetaminophen [Chester 5-325] 1 each PO Q6HR PRN #30 tab PRN Reason: Pain Discharge Medication List Allopurinol [Zyloprim] 300 mg PO DAILY 03/15/17 [History] Aspirin EC [Ecotrin Low Dose] 81 mg PO HS 03/15/17 [History] Colesevelam [Welchol] 1,875 mg PO AC-BID 03/15/17 [History] Esomeprazole Magnesium [NexIUM] 40 mg PO DAILY 03/15/17 [History] Folplex 2.2mg 2.2 mg PO DAILY 03/15/17 [History] Insulin Degludec [Tresiba Flextouch U-200] 24 unit SQ HS 03/15/17 [History] Insulin Glulisine [Apidra Solostar] See Protocol SQ ACHS 03/15/17 [History] Latanoprost [Xalatan 0.005%] 1 drop BOTH EYES TUTH@2100 03/15/17 [History] Magnesium Gluconate [Magonate] 500 mg PO BID 03/15/17 [History] Pitavastatin Calcium [Livalo] 4 mg PO DAILY 03/15/17 [History] Tamsulosin HCl [Flomax] 0.4 mg PO DAILY 03/15/17 [History] Tolterodine Tartrate [Detrol LA] 4 mg PO DAILY 03/15/17 [History] Torsemide [Demadex] 20 mg PO DAILY 03/15/17 [History] sitaGLIPtin [Januvia] 100 mg PO DAILY 03/15/17 [History] Docusate [Colace] 100 mg PO BID #30 capsule 03/16/17 [Rx] Hydrocodone/Acetaminophen [Chester 5-325] 1 each PO Q6HR PRN #30 tab 03/16/17 [Rx] Follow up Appointment(s)/Referral(s): Gregorio Cheng MD [Primary Care Provider] - 1-2 days Darlene Connors MD [STAFF PHYSICIAN] - 03/20/17 Activity/Diet/Wound Care/Special Instructions: No heavy lifting do not drive until seen by Dr. Connors Discharge when okay with infectious disease Patient may shower Discharge Disposition: HOME SELF-CARE
[2017-03-19] MEDS: INSULIN LISPRO (humaLOG) 300 UNIT/3 ML VIAL SQ SCH ×2 (08:54→12:11)
[2017-03-19] MEDS: TORSEMIDE 20 MG TAB PO SCH (08:55)
[2017-03-19] MEDS: ALLOPURINOL 300 MG TAB PO SCH (08:55)
[2017-03-19] MEDS: OXYBUTYNIN XL 5 MG TAB.ER.24 PO SCH (08:55)
[2017-03-19] MEDS: TAMSULOSIN 0.4 MG CAP.ER.24H PO SCH (08:55)
[2017-03-19 09:23] VITALS: BP 100/53; PULSE 60; RESP 16
[2017-03-19 11:22] LABS: Glucose,Whole Blood 258 mg/dL (75-99)
--- NOTE | 2017-03-20 13:46 | DS ---
DATE OF ADMISSION: 03/15/2017 DATE OF DISCHARGE: 03/19/2017 DATE OF SERVICE: 03/19/2017 FINAL DIAGNOSES: 1. Acute cholelithiasis and cholecystitis, status post laparoscopic cholecystectomy with liver biopsy with possible sepsis with Klebsiella pneumoniae, present on admission. 2. Increased AST, ALT, alkaline phosphatase. 3. Hypomagnesemia. 4. Increased total bilirubin. 5. Hypoalbuminemia with mild to moderate malnutrition. 6. Diabetes mellitus type 2. 7. Hyponatremia. 8. Anemia, normocytic. 9. Mild thrombocytopenia. 10. Atrial fibrillation, paroxysmal. 11. History of degenerative joint disease. 12. Remote history of nicotine dependence. 13. Right bundle branch block and EKG with normal sinus rhythm. 14. Right basilar atelectasis. DISCHARGE DISPOSITION: The patient will be discharged in stable condition with guarded prognosis. HISTORY OF PRESENT ILLNESS: This 66-year-old gentleman with a past medical history of multiple medical problems admitted with cholelithiasis and cholecystitis. Patient underwent laparoscopic cholecystectomy by Dr. Connors. The patient improved significantly. The patient also had evidence of sepsis with Klebsiella pneumoniae seen. Infectious Disease saw the patient. Care was coordinated. On examination, the vitals are stable. CARDIOVASCULAR: S1 and S2 muffled. ABDOMEN: Soft. NERVOUS SYSTEM: No focal deficits. DISCHARGE ADVICE: 1. Diet is cardiac. 2. Activity limited until followup. 3. Follow up with Dr. Cheng as advised. 4. Follow up with Dr. Connors and Dr. Rose as advised. Medications will be as follows: 1. Folplex 2.2 mg p.o. daily. 2. Zyloprim 300 mg daily. 3. Ecotrin 81 mg q.h.s. 4. Cipro 500 mg p.o. b.i.d. for 11 days. 5. Welchol 1875 mg p.o. daily. 6. Colace 100 mg p.o. b.i.d. 7. Esomeprazole that is Nexium 40 mg p.o. daily. 8. Hydrocodone 1 tablet q.6 p.r.n. 9. Degludec 24 units subcu q.h.s. as before. 10. Apidra per protocol. 11. Xalatan 1 drop both eyes. 12. Magnesium gluconate 500 mg p.o. b.i.d. 13. Livalo 4 mg p.o. daily. 14. Flomax 0.4 daily. 15. Detrol LA 4 mg p.o. daily. 16. Demadex 20 mg p.o. daily. 17. Januvia 100 mg p.o. daily. Once again, the patient will be discharged in stable condition with guarded prognosis. MTDD
== END 2017-03-19 13:35 | disposition home or self-care (01) | DRG 854 ==
LOC: EC 15:43 → 3SUR 20:02
PROVIDERS: ADMIT Hospitalist; ATTEND Hospitalist
PROC: 0FB14ZX Excision of Right Lobe Liver, Percutaneous Endoscopic Approach, Diagnostic (ICD-10-PCS; 2017-03-16)
PROC: 0FT44ZZ Resection of Gallbladder, Percutaneous Endoscopic Approach (ICD-10-PCS; principal; 2017-03-16 07:30)
DX: A41.59 Other Gram-negative sepsis (principal); K80.00 Calculus of gallbladder with acute cholecystitis without obstruction; E44.0 Moderate protein-calorie malnutrition; K83.0 Cholangitis; E87.1 Hypo-osmolality and hyponatremia; J98.11 Atelectasis; D69.6 Thrombocytopenia, unspecified; I48.0 Paroxysmal atrial fibrillation; E83.42 Hypomagnesemia; I10 Essential (primary) hypertension; E11.9 Type 2 diabetes mellitus without complications; E66.9 Obesity, unspecified; D64.9 Anemia, unspecified; I45.10 Unspecified right bundle-branch block; M19.90 Unspecified osteoarthritis, unspecified site; R74.8 Abnormal levels of other serum enzymes; E78.5 Hyperlipidemia, unspecified; K76.9 Liver disease, unspecified; Z79.4 Long term (current) use of insulin; Z79.82 Long term (current) use of aspirin; Z79.899 Other long term (current) drug therapy; Z88.8 Allergy status to other drugs, medicaments and biological substances; Z68.32 Body mass index [BMI] 32.0-32.9, adult; Z87.891 Personal history of nicotine dependence
CPT/HCPCS: 36415; 71020; 76705; 80053; 80074; 81003; 82248; 82378; 83036; 83605; 83690; 83735; 84100; 84484; 85025; 85610; 85730; 86301; 87040; 87077; 87086; 87186; 87502; 88304; 88307; 88313; 93005; 94640; 94760; 96361; 96365; 96366; 96367; 96368; 96375; 99285

== ENCOUNTER → 2017-03-28 | Outpatient (CLI) | payer MEDICARE ==
[2017-03-28 11:43] LABS: Blood Urea Nitrogen 21 mg/dL (9-20); Non-African American GFR(MDRD) >60 (>60 ml/min/1.73 sqM)
--- NOTE | 2017-03-28 14:10 | CT ---
EXAMINATION TYPE: CT abdomen pelvis w con DATE OF EXAM: 03/28/2017 1:17 PM COMPARISON: Limited abdominal ultrasound March 15, 2017 HISTORY: Liver abscess, spots on liver CT DLP: 1531.3 mGycm, Automated Exposure Control for Dose Reduction was Utilized. CONTRAST: CT scan of the abdomen and pelvis is performed with oral and with IV Contrast, patient injected with 100 mL of Omnipaque 300. FINDINGS: LUNG BASES: Calcified right hilar and subcarinal lymph nodes are seen. Elevated right hemidiaphragm i s noted. There is right basilar atelectasis and/or Limited consolidation. There is small pericardial effusion anteriorly. LIVER/GB: A 1.7 x 1.1 cm low dense lesion anteriorly in liver is noted. Additional subcentimeter low dense lesion are seen anteriorly in liver and scattered throughout the liver, all are too small to fu rther characterize but most likely benign. I count roughly 8 scattered lesions. Cholecystectomy clips are now present. Common bile duct measures up to 13 mm in diameter. There is mi ld central intrahepatic and extrahepatic biliary dilatation redemonstrated without obstructing calcif ied calculus clearly seen. There appears to be abrupt cut off in the CBD before the ampulla on sanchez l image 43. There is suggestion of 6 mm round hyperdense lesion, , possible hyperdense calculus or le ss likely other etiologies such as polyp or hematoma on axial image 38 and coronal image 44. There is suspected 4 mm lesion closer to the ampulla on coronal image 45. Pancreatic duct is unremarkable roughly 1.7 cm inferior to this on coronal image 44. PANCREAS: No significant abnormality is seen. SPLEEN: Occasional punctate calcifications are scattered throughout the spleen. ADRENALS: No significant abnormality is seen. KIDNEYS: No significant abnormality is seen. BOWEL: Oral contrast does not reach colonic level making evaluation slightly suboptimal. There is sma ll bowel feces sign in distal ileum consistent with delayed passage of ingested material 2 colonic le lindsay. There is some redundancy of the sigmoid colon. Occasional diverticula scattered throughout the c olon is present. There is no CT evidence for acute diverticulitis. PROSTATE/SEMINAL VESICLES: Prostate gland is heterogeneous in appearance and slightly enlarged in si ze consistent with BPH. Clinical correlation advised. LYMPH NODES: No greater than 1cm abdominal or pelvic lymph nodes are appreciated. OSSEOUS STRUCTURES: Some multilevel spurring in the spine is seen. Some facet arthropathy lower lumba r levels is seen. OTHER: There is moderate atherosclerotic change of the aorta and branch vessels. Nonspecific tiny soft tissue nodule left mid abdomen anteriorly on axial image 61. Small fat-containi ng umbilical hernia at this level. IMPRESSION: 1. Several small hypodense lesions scattered throughout the liver are too small to characterize but f avored benign. No worrisome focal fluid collection or abscess is identified. 2. Interval cholecystectomy with mild extrahepatic and central intrahepatic biliary dilatation presen t out of proportion to expected after cholecystectomy. There is abrupt cut off of the CBD proximal to the ampulla with 2 small intraductal lesions felt present, suspect hyperdense calculi, other etiolog ies not excluded. Need to further investigate by ERCP should be based on clinical and liver lab enzym e correlation. Results communicated to ordering physician via telephone at time of dictation.
== END | disposition home or self-care (01) ==
LOC: RADCTMAIN 11:03
PROVIDERS: ATTEND Surgery
DX: K76.9 Liver disease, unspecified (principal); K83.9 Disease of biliary tract, unspecified; Z90.49 Acquired absence of other specified parts of digestive tract
CPT/HCPCS: 82565; 84520; 74177; 36415; Q9967

== ENCOUNTER 2017-05-08 09:04 | Day surgery (SDC) | payer MEDICARE ==
[2017-05-05 08:46] VITALS: BMI 30.8
[~2017-05-08 09:04] MED LIST: INDOMETHACIN 50MG SUPPOSITORY RECTAL NR; LACTATED RINGERS 1,000 ML IV SCH; LEVOFLOXACIN 500MG-D5W PMX 500 MG in DEXTROSE/WATER 1 100ML.BAG IVPB NR
[2017-05-08 09:58] LABS: Glucose,Whole Blood 136 mg/dL (75-99)
[2017-05-08] MEDS ORDERED: LIDOCAINE 1% 20 ML VIAL (10MG/ML) FOR IV START INTRADERMA ONE (10:10)
[2017-05-08 10:14] VITALS: TEMP 97.1
[2017-05-08 10:14] LABS: Basophils % (A) 1 %; CH 32.8; CHCM 34.3; Eosinophils # (A) 0.2 k/uL (0-0.7); Eosinophils % (A) 2 %; HCT 45.3 % (39.0-53.0); HDW 2.51; Luc # (Auto) 0.12; Luc % (Auto) 2; Lymphocytes # (A) 1.6 k/uL (1.0-4.8); Lymphocytes % (A) 21 %; MCH 32.2 pg (25.0-35.0); MCHC 33.5 g/dL (31.0-37.0); MCV 95.9 fL (80.0-100.0); Monocytes # (A) 0.4 k/uL (0-1.0); Monocytes % (A) 5 %; Neutrophils # (A) 5.3 k/uL (1.3-7.7); Neutrophils % (A) 70 %; RBC 4.72 m/uL (4.30-5.90); RDW 14.5 % (11.5-15.5); WBC 7.6 k/uL (3.8-10.6)
[2017-05-08 10:19] LABS: HGB 15.2 gm/dL (13.0-17.5)
[2017-05-08 10:25] LABS: INR 0.9 (<1.1); Partial Thromboplastin Time 22.7 sec (22.0-30.0); Prothrombin Time 9.6 sec (9.0-12.0)
[2017-05-08 10:26] LABS: ALT 38 U/L (21-72); AST 34 U/L (17-59); Alkaline Phosphatase 65 U/L (38-126); Anion Gap 7 mmol/L; Blood Urea Nitrogen 20 mg/dL (9-20); Calcium 9.8 mg/dL (8.4-10.2); Carbon Dioxide 28 mmol/L (22-30); Chloride 108 mmol/L (98-107); Glucose 131 mg/dL (74-99); Non-African American GFR(MDRD) >60 (>60 ml/min/1.73 sqM); Potassium 4.3 mmol/L (3.5-5.1); Sodium 143 mmol/L (137-145); Total Bilirubin 0.8 mg/dL (0.2-1.3); Total Protein 6.7 g/dL (6.3-8.2)
[2017-05-08] MEDS ORDERED: LIDOCAINE 1% INJ 10MG/ML (20 ML MDV) ONE (11:51)
[2017-05-08] MEDS ORDERED: fentaNYL (PF) 50 MCG/ML 2 ML AMP ONE (11:51)
[2017-05-08] MEDS ORDERED: GLUCAGON 1 MG/ML VIAL ONE (11:51)
[2017-05-08] MEDS ORDERED: MIDAZOLAM 2 MG/2 ML VIAL ONE (11:51)
[2017-05-08] MEDS ORDERED: PROPOFOL 10 MG/ML 20 ML VIAL IV ONE (11:51)
[2017-05-08] MEDS ORDERED: IOHEXOL 300 MG/ML 50 ML BOTTLE INJ ONE (12:13)
--- NOTE | 2017-05-08 12:32 | P.PCN ---
Date of Procedure: 05/08/17 Preoperative Diagnosis: Postoperative Diagnosis: Procedure(s) Performed: Brief history: Patient is a 66 year-old pleasant white male, scheduled for an ERCP as part of evaluation of choledocholithiasis. The patient was admitted to the hospital 6 weeks ago with acute cholecystitis and gram-negative bacteremia and multiple small liver abscesses for which she was treated with antibiotics for total of 4 weeks' duration. Because of the clinical suspicion for CBD stone he had an MRCP done an outpatient basis revealed multiple stones in the common bile duct largest measuring 1.5 cm in size. He is hence scheduled for an ERCP for CBD stone extraction. Procedure performed: ERCP with biliary sphincterotomy, balloon stone extraction Preoperative diagnoses: Choledocholithiasis IV sedation per anesthesia: Procedure: After informed consent was obtained from the patient and after the risks benefits and complications including bleeding perforation and pancreatitis explained in detail the patient was brought into the endoscopy unit. The patient was placed in prone position and IV conscious sedation was administered by anesthesia under continuous monitoring. The Olympus side-viewing duodenoscope was then inserted into the mouth and esophagus intubated without any difficulty. The scope was gradually advanced into the stomach and duodenum. The major papilla was identified without any difficulty. Initial cannulation with a taper-tip catheter resulted in the opacification of the pancreatic duct that appeared normal. Subsequent cannulation resulted in opacification of the common bile duct. It appeared dilated measuring at least 1.5 cm in diameter with multiple filling defects noted in the common bile duct with intrahepatic biliary ductal dilation. The largest filling defect was about 1.5 cm in diameter. At this time the catheter was exchanged over a guidewire with a biliary sphincterotome and a biliary sphincterotomy was performed at 12 o'clock position and was extended to 1.2-1.3 cm in length. Following this a 12 mm balloon was passed over the guidewire into the proximal CBD was gently inflated and gradually withdrawn. Initially there was a large stone that was seen exiting the ampulla which measured about 1.5 cm in size. The maneuver was repeated again, and as the balloon was gently withdrawn there were at least 6 small stones all measuring between 7 mm to 1 m in size was seen exiting the ampulla. This procedure was repeated several times until no more stones were seen exiting the ampulla and the procedure was terminated at this point. Patient tolerated the procedure well. Impression: Normal-appearing pancreatic duct Dilated common bile duct measuring 1.5 cm in diameter with multiple filling defects status post biliary sphincterotomy and balloon stone extraction as described above. At least 7 stones were extracted, the largest measuring 1.5 cm. Recommendations: The findings of this examination were discussed with the patient as well as a family. He will be observed in the hospital for 2 hours and if he remains asymptomatic he will be discharged home on a clear liquid diet today. He will be seen back in office in 2 weeks. Implants: Indications for Procedure: Operative Findings: Description of Procedure:
--- NOTE | 2017-05-08 12:36 | FL ---
EXAMINATION TYPE: FL ERCP biliary duct only DATE OF EXAM: 05/08/2017 HISTORY: Flouroscopy time 3 minutes and 5 seconds of fluoroscopy provided. IMPRESSION: 1. Fluoroscopy time.
[2017-05-08] MEDS ORDERED: ONDANSETRON 4 MG/2 ML VIAL IVP ONE (13:12)
[2017-05-08 13:14] LABS: Glucose,Whole Blood 169 mg/dL (75-99)
[2017-05-08] MEDS ORDERED: HYDROmorphone 1 MG/ML 1 ML SYRINGE IVP ONE ×2 (13:18→14:09)
[2017-05-08 13:25] VITALS: RESP 16
[2017-05-08 15:04] VITALS: BP 119/59; PULSE 60
== END 2017-05-08 15:28 | disposition home or self-care (01) ==
LOC: ORWHC2ENDO 09:04
PROVIDERS: ATTEND Internal Medicine Gastroenterology
DX: K80.50 Calculus of bile duct without cholangitis or cholecystitis without obstruction (principal); K83.8 Other specified diseases of biliary tract; E78.5 Hyperlipidemia, unspecified; I48.91 Unspecified atrial fibrillation; M10.9 Gout, unspecified; E11.9 Type 2 diabetes mellitus without complications; K21.9 Gastro-esophageal reflux disease without esophagitis; Z79.84 Long term (current) use of oral hypoglycemic drugs; Z79.82 Long term (current) use of aspirin; Z79.4 Long term (current) use of insulin; Z79.899 Other long term (current) drug therapy; Z88.8 Allergy status to other drugs, medicaments and biological substances
CPT/HCPCS: 80053; 85025; 85610; 85730; 74328; 43264; 43262; J2250; J1610; J2405; J1956; J2001; J3010; J1170; J2704; Q9967